=== PATIENT | female | born 1950 | race Caucasian/White ===

== ENCOUNTER 2016-12-02 08:04 | Inpatient (IN) | payer OTHER ==
[~2016-12-02] VITALS: Ht 165.1 cm; Wt 60.1 kg
[~2016-12-02 08:04] MED LIST: ADVIN25/60 INH; CALC-20 PO; CLB/200 PO; FSMD/70 PO; LEVO125T57 PO; MULTTAB58 PO; PRLSR20 PO; TRIA37.5 PO; XRL10 PO
[2016-12-02] MEDS ORDERED: KETOROLAC TROMETHAMINE 30 MG/ML VIAL IV STA (08:16)
[2016-12-02] MEDS ORDERED: ONDANSETRON INJ 2 MG/ML 2 ML VIAL IV STA (08:16)
[2016-12-02] MEDS ORDERED: SODIUM CHLORIDE 0.9% 1000ML 500 ML IV STA (08:16)
--- NOTE | 2016-12-02 08:26 | EMERGENCY ROOM VISIT NOTE ---
History Report prepared by Naseem: Riri Saba Under the Supervision of: Dr. Michael Bonds M.D. First contact with patient: 08:11 Chief Complaint: ABDOMINAL PAIN Stated Complaint: SEVERE LOWER ABD PAIN/PRESSURE History of Present Illness The patient is a 66 year old female who presents to the Emergency Room with complaints of persistent lower abdominal pain that began yesterday afternoon. She currently rates her discomfort as a 9/10 in severity and describes her pain as a pressure. The patient states that she has a history of diverticulitis, noting that her pain today feels worse than her bouts of diverticulitis. She reports a history of an appendectomy and hysterectomy. The patient states that she did not take her diuretic today. She denies any pain radiating into her back. The patient denies any fever. She associates nausea with her symptoms today. The patient denies any history of a UTI. She states that her pain started when she had a hard bowel movement, but states that she is now experiencing diarrhea. Source of History: patient Onset: yesterday afternoon Position: abdomen (lower ) Symptom Intensity: 9/10 Quality: pressure Associated Symptoms: + nausea, + diarrhea, No fevers Review of Systems See HPI for pertinent positives & negatives. A total of 10 systems reviewed and were otherwise negative. Past Medical & Surgical Medical Problems: (1) Asthma (2) Breast cancer (3) Diverticulitis (4) Hypertension (5) Thyroid disease Surgical Problems: (1) H/O bilateral mastectomy (2) H/O: hysterectomy (3) History of appendectomy (4) History of tonsillectomy (5) S/p bilateral shoulder joint replacement (6) S/P cholecystectomy (7) Status post right hip replacement Family History No pertinent family history stated. Social History Smoking Status: Never Smoker Smokeless Tobacco Use: No Alcohol Use: none Marital Status: Housing Status: lives with significant other Current/Historical Medications Scheduled Amlodipine (Norvasc), 2.5 MG PO DAILY Calcium Carbonate-Vitamin D (Calcium 600 + D), 1 TAB PO BID Escitalopram (Lexapro), 10 MG PO DAILY Levothyroxine Sodium (Synthroid), 112 MCG PO DAILY Multiple Vitamin (Multivitamin), 1 TAB PO DAILY Pantoprazole (Protonix), 40 MG PO DAILY Triamterene/Hctz (Dyazide 37.5MG/25MG), 1 TAB PO DAILY Scheduled PRN Ltjmwgh-Wdfkipjstqget-Pcnhcswv (Excedrin Extra Strength), 1 TAB PO UD PRN for Pain Budesonide/Formoterol Fumarate (Symbicort 80/4.5 Inhaler), 2 PUFFS INH BID PRN for SOB/Wheezing Allergies Coded Allergies: No Known Allergies (Verified , 12/02/16) Physical Exam Vital Signs Date Time Temp Pulse Resp B/P (MAP) Pulse Ox O2 Delivery O2 Flow Rate FiO2 12/02/16 10:52 68 136/78 94 Room Air 12/02/16 09:04 75 179/92 93 Room Air 12/02/16 08:08 37.6 97 18 187/101 94 Room Air Physical Exam GENERAL: Patient is in no acute distress. HEENT: No acute trauma, normocephalic atraumatic, mucous membranes moist, no nasal congestion, no scleral icterus. NECK: No stridor, no adenopathy, no meningismus, trachea is midline. LUNGS: Clear to auscultation bilaterally, no wheeze, no rhonchi, breath sounds equal. HEART: Without murmurs gallops or rubs, regular rate and rhythm. ABDOMEN: Moderately tender to lower abdomen bilaterally. Soft, bowel sounds positive, no hernias, no peritonitis. EXTREMITIES: No cyanosis or edema, full range of motion of all the joints without pain or difficulty, no signs for acute trauma. NEUROLOGIC: Oriented x 3, no acute motor or sensory deficits, no focal weakness. SKIN: No rash, no jaundice, no diaphoresis. Medical Decision & Procedures ER Provider Diagnostic Interpretation: CT results as stated below per my review and radiologist interpretation: ABD/PELVIS IV AND ORAL CONT HISTORY: 66 years-old Female ABDOMINAL PAIN/GI--?DIVERTICULITIS--GIVE PO AND IV CONTRAST acute diffuse lower abdominal pain COMPARISON: None available TECHNIQUE: Multiple axial CT images of the abdomen and pelvis were obtained following the administration of both oral and IV contrast. 95 mL Optiray 320 IV contrast was administered. A dose lowering technique was used consistent with the principals of ALARA. FINDINGS: The imaged lung bases are generally clear. The imaged inferior cardiac chambers are unremarkable. Coronary arterial calcifications are noted. Prior cholecystectomy. Mild intrahepatic and extrahepatic biliary ductal dilation is likely secondary to postcholecystectomy state with common bile duct measuring up to 12 mm transversely. There is a nonspecific 1.5 x 1.9 cm low attenuating lesion of the subserosal anterior spleen. There is moderate pancreatic atrophy. Adrenal glands are within normal limits. Bilateral kidneys and ureters are within normal limits. Limited evaluation of the pelvic structures secondary to bilateral hip arthroplasty pelvic hardware. Urinary bladder appears demonstrate mildly thickened wall anteriorly which is nonspecific. The uterus is not well seen and may be surgically absent. There is mild atherosclerotic plaquing of the abdominal aorta. No bulky retroperitoneal adenopathy. Moderate-sized duodenal diverticulum is noted. No bowel obstruction. There is circumferential wall thickening involving several loops of sigmoid colon. Innumerable sigmoid colonic diverticula are noted with mild degree of inflammatory changes seen in the region of the mid sigmoid colon. Scattered foci of extraperitoneal air noted within the pelvis compatible with perforation. There is a mixed attenuating collection containing central foci of air and debris in the region of the mid sigmoid colon on image 308, 2.2 x 3.4 x 2.3 cm which does not contain oral contrast, suspicious for intramural abscess. Soft tissues are within normal limits. The bones are mildly demineralized. Grade 1 anterolisthesis of L4 on L5 appears be secondary to severe facet arthropathy. Multilevel advanced discogenic degenerative changes are noted. Without IMPRESSION: 1. Findings compatible with acute complicated sigmoid diverticulitis. Pneumoperitoneum of the lower pelvis is compatible with associated perforation. Additionally, there is a probable intramural abscess involving the mid sigmoid colon measuring up to 3.4 cm. 2. No bowel obstruction. 3. Additional incidental findings as above. The above report was generated using voice recognition software. It may contain grammatical, syntax or spelling errors. Electronically signed by: Rashad Jaramillo M.D. 12/02/2016 10:52 AM Dictated Date/Time: 12/02/2016 10:41 AM Laboratory Results 12/02/16 08:40 Red Blood Count 4.89, Mean Corpuscular Volume 84.9, Mean Corpuscular Hemoglobin 28.8, Mean Corpuscular Hemoglobin Concent 34.0, Mean Platelet Volume 9.1, Neutrophils (%) (Auto) 87.6, Lymphocytes (%) (Auto) 6.0, Monocytes (%) (Auto) 5.8, Eosinophils (%) (Auto) 0.2, Basophils (%) (Auto) 0.2, Neutrophils # (Auto) 11.16, Lymphocytes # (Auto) 0.76, Monocytes # (Auto) 0.74, Eosinophils # (Auto) 0.02, Basophils # (Auto) 0.02 12/02/16 08:40 Test 12/02/16 08:18 12/02/16 08:40 Urine Color YELLOW Urine Appearance CLOUDY (CLEAR) Urine pH 7.0 (4.5-7.5) Urine Specific [place] 1.019 (1.000-1.030) Urine Protein NEG (NEG) Urine Glucose (UA) NEG (NEG) Urine Ketones NEG (NEG) Urine Occult Blood TRACE (NEG) Urine Nitrite POS (NEG) Urine Bilirubin NEG (NEG) Urine Urobilinogen NEG (NEG) Urine Leukocyte Esterase MODERATE (NEG) Urine WBC (Auto) >30 /hpf (0-5) Urine RBC (Auto) 0-4 /hpf (0-4) Urine Hyaline Casts (Auto) 1-5 /lpf (0-5) Urine Epithelial Cells (Auto) 0-5 /lpf (0-5) Urine Bacteria (Auto) 4+ (NEG) White Blood Count 12.73 K/uL (4.8-10.8) Red Blood Count 4.89 M/uL (4.2-5.4) Hemoglobin 14.1 g/dL (12.0-16.0) Hematocrit 41.5 % (37-47) Mean Corpuscular Volume 84.9 fL (80-100) Mean Corpuscular Hemoglobin 28.8 pg (25-34) Mean Corpuscular Hemoglobin Concent 34.0 g/dl (32-36) Platelet Count 239 K/uL (130-400) Mean Platelet Volume 9.1 fL (7.4-10.4) Neutrophils (%) (Auto) 87.6 % Lymphocytes (%) (Auto) 6.0 % Monocytes (%) (Auto) 5.8 % Eosinophils (%) (Auto) 0.2 % Basophils (%) (Auto) 0.2 % Neutrophils # (Auto) 11.16 K/uL (1.4-6.5) Lymphocytes # (Auto) 0.76 K/uL (1.2-3.4) Monocytes # (Auto) 0.74 K/uL (0.11-0.59) Eosinophils # (Auto) 0.02 K/uL (0-0.5) Basophils # (Auto) 0.02 K/uL (0-0.2) RDW Standard Deviation 41.5 fL (36.4-46.3) RDW Coefficient of Variation 13.4 % (11.5-14.5) Immature Granulocyte % (Auto) 0.2 % Immature Granulocyte # (Auto) 0.03 K/uL (0.00-0.02) Anion Gap 7.0 mmol/L (3-11) Est Creatinine Clear Calc Drug Dose 75.3 ml/min Estimated GFR () 106.9 Estimated GFR (Non- 92.2 BUN/Creatinine Ratio 19.4 (10-20) Calcium Level 10.3 mg/dl (8.5-10.1) Total Bilirubin 0.7 mg/dl (0.2-1) Aspartate Amino Transf (AST/SGOT) 15 U/L (15-37) Alanine Aminotransferase (ALT/SGPT) 19 U/L (12-78) Alkaline Phosphatase 87 U/L (45-117) Total Protein 7.7 gm/dl (6.4-8.2) Albumin 4.2 gm/dl (3.4-5.0) Globulin 3.5 gm/dl (2.5-4.0) Albumin/Globulin Ratio 1.2 (0.9-2) Lipase 130 U/L (73-393) Laboratory results reviewed by me. Medications Administered Medications (Trade) Dose Ordered Sig/Adrinaa Route Start Time Stop Time Status Last Admin Dose Admin Sodium Chloride 500 ml @ 999 mls/hr Q31M STAT IV 12/02/16 08:16 12/02/16 08:46 DC 12/02/16 08:44 999 MLS/HR Ondansetron HCl (Zofran Inj) 4 mg NOW STAT IV 12/02/16 08:16 12/02/16 08:18 DC 12/02/16 08:43 4 MG Ketorolac Tromethamine (Toradol Inj) 30 mg NOW STAT IV 12/02/16 08:16 12/02/16 08:18 DC 12/02/16 08:43 30 MG Ceftriaxone Sodium (Rocephin Inj) 1 gm NOW STAT IV 12/02/16 08:55 12/02/16 08:56 DC 12/02/16 09:00 1 GM Piperacillin Sod/ Tazobactam Sod (Zosyn Iv) 4.5 gm NOW STAT IV 12/02/16 11:07 12/02/16 11:08 DC 12/02/16 11:43 4.5 GM ED Course 0812: The patient was evaluated in room A3. A complete history and physical exam was performed. 0816: Ordered Toradol Inj 30 mg IV, Zofran Inj 4 mg IV, Sodium Chloride 500 ml @ 999 mls/hr IV. 0855: Ordered Rocephin Inj 1 gm IV. 0937: I reevaluated the patient and she is resting comfortably, drinking her contrast. 1107: I discussed the patients case with Dr. Alex, General Surgery. He states that he will come evaluate the patient. Ordered Zosyn IV 4.5 gm IV. 1111: I reevaluated the patient and she is resting. I discussed the exam findings with her and I discussed the treatment plan. Dr. Alex, General Surgery is going to come evaluate the patient. Medical Decision The patient is a 66 year old female who presents to the ED with complaints of lower abdominal pain. Differential diagnoses considered include Diverticulitis , UTI, kidney infection, hernia, bowel rupture, musculoskeletal pain, pancreatitis, colitis, constipation. There is a mild leukocytosis, this would be consistent with infection. No concerning anemia. No significant electrolyte abnormality, kidney failure or hepatitis. No pancreatitis Urinalysis does suggest infection, urine culture is pending. Abdominal and pelvis CT shows diverticulitis with a small abscess and what appears to be a diverticular perforation. The patient received IV saline, IV Zofran and IV Toradol. She was given IV ceftriaxone and IV Zosyn. I spoke to the patient about her findings, I talked with the case resolution specialist. I spoke with the on-call surgeon. The patient will be brought into the hospital, she may require an operation. Consults Time Called: 1106 Consulting Physician: Dr. Alex, General Surgery Returned Call: 1107 I discussed the patients case with Dr. Alex, General Surgery. He states that he will come evaluate the patient. Impression Primary Impression: Diverticulitis Additional Impressions: Bowel perforation Intestinal diverticular abscess UTI (urinary tract infection) Scribe Attestation The scribe's documentation has been prepared under my direction and personally reviewed by me in its entirety. I confirm that the note above accurately reflects all work, treatment, procedures, and medical decision making performed by me. Departure Information Dispostion Being Evaluated By Surgeon Referrals Zander Taylor M.D. (PCP) Problem Qualifiers
[2016-12-02] MEDS ORDERED: OPTIRAY 320 IV PRN (08:30)
[2016-12-02 08:36] LABS: URINE APPEARANCE CLOUDY (CLEAR); URINE BILIRUBIN NEG (NEG); URINE COLOR YELLOW; URINE EPITHELIAL CELL AUTO 0-5 /lpf (0-5); URINE NITRITE POS (NEG); URINE SPECIFIC GRAVITY 1.019 (1.000-1.030); UROBILINOGEN NEG (NEG); ZZUR CULT IF INDIC CLEAN CATCH YES
[2016-12-02] MEDS ORDERED: LEVO112T2 PO (08:44)
[2016-12-02] MEDS ORDERED: ESCI10TA17 PO (08:44)
[2016-12-02] MEDS ORDERED: ASPI-391 PO (08:44)
[2016-12-02] MEDS ORDERED: AMLO2.5T PO (08:44)
[2016-12-02] MEDS ORDERED: PANT40TA PO (08:44)
[2016-12-02] MEDS ORDERED: SYMIN/8045 INH (08:44)
[2016-12-02 08:48] LABS: MANUAL MICROSCOPIC REQUIRED? NO; REVIEW REQ? NO
[2016-12-02 08:49] LABS: BASO % 0.2 %; BASO ABS # 0.02 K/uL (0-0.2); COMPLETE YES; EOS % 0.2 %; HEMATOCRIT 41.5 % (37-47); IG% 0.2 %; LYMPH ABS # 0.76 K/uL (1.2-3.4); MEAN CELL VOLUME 84.9 fL (80-100); MEAN CORPUSCULAR HEMOGLOBIN 28.8 pg (25-34); MEAN PLATELET VOLUME 9.1 fL (7.4-10.4); MONO % 5.8 %; NEUT % 87.6 %; PLATELET COUNT 239 K/uL (130-400); RED BLOOD COUNT 4.89 M/uL (4.2-5.4); WHITE BLOOD COUNT 12.73 K/uL (4.8-10.8)
[2016-12-02] MEDS ORDERED: CEFTRIAXONE SOD INJ 1 GM ADDVIAL IV STA (08:55)
[2016-12-02 09:06] LABS: BUN/CREATININE RATIO 19.4 (10-20); CALCIUM 10.3 mg/dl (8.5-10.1); CREATININE 0.67 mg/dl (0.60-1.20); POTASSIUM 3.1 mmol/L (3.5-5.1)
[2016-12-02 09:09] LABS: ALB/GLOB RATIO 1.2 (0.9-2)
--- NOTE | 2016-12-02 10:53 | DIAGNOSTIC IMAGING REPORT ---
ABD/PELVIS IV AND ORAL CONT HISTORY: 66 years-old Female ABDOMINAL PAIN/GI--?DIVERTICULITIS--GIVE PO AND IV CONTRAST acute diffuse lower abdominal pain COMPARISON: None available TECHNIQUE: Multiple axial CT images of the abdomen and pelvis were obtained following the administration of both oral and IV contrast. 95 mL Optiray 320 IV contrast was administered. A dose lowering technique was used consistent with the principals of SANTANA. FINDINGS: The imaged lung bases are generally clear. The imaged inferior cardiac chambers are unremarkable. Coronary arterial calcifications are noted. Prior cholecystectomy. Mild intrahepatic and extrahepatic biliary ductal dilation is likely secondary to postcholecystectomy state with common bile duct measuring up to 12 mm transversely. There is a nonspecific 1.5 x 1.9 cm low attenuating lesion of the subserosal anterior spleen. There is moderate pancreatic atrophy. Adrenal glands are within normal limits. Bilateral kidneys and ureters are within normal limits. Limited evaluation of the pelvic structures secondary to bilateral hip arthroplasty pelvic hardware. Urinary bladder appears demonstrate mildly thickened wall anteriorly which is nonspecific. The uterus is not well seen and may be surgically absent. There is mild atherosclerotic plaquing of the abdominal aorta. No bulky retroperitoneal adenopathy. Moderate-sized duodenal diverticulum is noted. No bowel obstruction. There is circumferential wall thickening involving several loops of sigmoid colon. Innumerable sigmoid colonic diverticula are noted with mild degree of inflammatory changes seen in the region of the mid sigmoid colon. Scattered foci of extraperitoneal air noted within the pelvis compatible with perforation. There is a mixed attenuating collection containing central foci of air and debris in the region of the mid sigmoid colon on image 308, 2.2 x 3.4 x 2.3 cm which does not contain oral contrast, suspicious for intramural abscess. Soft tissues are within normal limits. The bones are mildly demineralized. Grade 1 anterolisthesis of L4 on L5 appears be secondary to severe facet arthropathy. Multilevel advanced discogenic degenerative changes are noted. Without IMPRESSION: 1. Findings compatible with acute complicated sigmoid diverticulitis. Pneumoperitoneum of the lower pelvis is compatible with associated perforation. Additionally, there is a probable intramural abscess involving the mid sigmoid colon measuring up to 3.4 cm. 2. No bowel obstruction. 3. Additional incidental findings as above. The above report was generated using voice recognition software. It may contain grammatical, syntax or spelling errors. Electronically signed by: Rashad Jaramillo M.D. 12/02/2016 10:52 AM Dictated Date/Time: 12/02/2016 10:41 AM
[2016-12-02] MEDS ORDERED: PIPERACILLIN/TAZOBACTAM 4.5 GM/100ML D5W IV STA (11:07)
--- NOTE | 2016-12-02 11:46 | History and Physical ---
History & Physical Date & Time of Service: Dec 02, 2016 at 11:41 Chief Complaint: Severe Lower Abd Pain/Pressure Primary Care Physician: Zander Taylor M.D. History of Present Illness pt began with loose BM's yesterday...took a bentyl...starting having lower pain and urinary symptoms as well. this morning got worse. Has had at least one episode of diverticulitis in past. no fever. Past Medical/Surgical History Medical Problems: (1) Asthma Status: Chronic (2) Breast cancer Status: Resolved (3) Hypertension Status: Chronic (4) Thyroid disease Status: Chronic Surgical Problems: (1) H/O bilateral mastectomy Status: Resolved (2) H/O: hysterectomy Status: Resolved (3) History of appendectomy Status: Resolved (4) History of tonsillectomy Status: Resolved (5) S/p bilateral shoulder joint replacement Status: Resolved (6) S/P cholecystectomy Status: Resolved (7) Status post right hip replacement Status: Resolved Social History Smoking Status: Never Smoker Smokeless Tobacco Use: No Marital Status: Immunizations History of Influenza Vaccine: N/A History of Tetanus Vaccine?: Yes History of Pneumococcal: Yes History of Hepatitis B Vaccine: No Multi-Drug Resistant Organisms History of MDRO: No Allergies Coded Allergies: No Known Allergies (Verified , 12/02/16) Home Medications Scheduled Amlodipine (Norvasc), 2.5 MG PO DAILY Calcium Carbonate-Vitamin D (Calcium 600 + D), 1 TAB PO BID Escitalopram (Lexapro), 10 MG PO DAILY Levothyroxine Sodium (Synthroid), 112 MCG PO DAILY Multiple Vitamin (Multivitamin), 1 TAB PO DAILY Pantoprazole (Protonix), 40 MG PO DAILY Triamterene/Hctz (Dyazide 37.5MG/25MG), 1 TAB PO DAILY Scheduled PRN Nxzlwxc-Julkkvirxgeiu-Sqyplgqb (Excedrin Extra Strength), 1 TAB PO UD PRN for Pain Budesonide/Formoterol Fumarate (Symbicort 80/4.5 Inhaler), 2 PUFFS INH BID PRN for SOB/Wheezing Review of Systems Abdomen: + pain, + diarrhea Genitourinary - Female: + dysuria, + urinary frequency Physical Exam Vital Signs Date Time Temp Pulse Resp B/P (MAP) Pulse Ox O2 Delivery O2 Flow Rate FiO2 12/02/16 10:52 68 136/78 94 Room Air 12/02/16 09:04 75 179/92 93 Room Air 12/02/16 08:08 37.6 97 18 187/101 94 Room Air General Appearance: no apparent distress Head: normocephalic, atraumatic Eyes: normal inspection, EOMI ENT: hearing grossly normal Neck: supple, no JVD Respiratory/Chest: no respiratory distress, no accessory muscle use Cardiovascular: no edema, no JVD Abdomen/GI: soft, + pertinent finding (mild suprapubic tendernss. no peritoneal signs) Neurologic/Psych: alert, oriented x 3 Skin: normal color, warm/dry, no rash Diagnostics Laboratory Results Results Past 24 Hours Test 12/02/16 08:18 12/02/16 08:40 Range/Units Urine Color YELLOW Urine Appearance CLOUDY CLEAR Urine pH 7.0 4.5-7.5 Urine Specific [place] 1.019 1.000-1.030 Urine Protein NEG NEG Urine Glucose (UA) NEG NEG Urine Ketones NEG NEG Urine Occult Blood TRACE NEG Urine Nitrite POS NEG Urine Bilirubin NEG NEG Urine Urobilinogen NEG NEG Urine Leukocyte Esterase MODERATE NEG Urine WBC (Auto) >30 0-5 /hpf Urine RBC (Auto) 0-4 0-4 /hpf Urine Hyaline Casts (Auto) 1-5 0-5 /lpf Urine Epithelial Cells (Auto) 0-5 0-5 /lpf Urine Bacteria (Auto) 4+ NEG White Blood Count 12.73 4.8-10.8 K/uL Red Blood Count 4.89 4.2-5.4 M/uL Hemoglobin 14.1 12.0-16.0 g/dL Hematocrit 41.5 37-47 % Mean Corpuscular Volume 84.9 80-100 fL Mean Corpuscular Hemoglobin 28.8 25-34 pg Mean Corpuscular Hemoglobin Concent 34.0 32-36 g/dl Platelet Count 239 130-400 K/uL Mean Platelet Volume 9.1 7.4-10.4 fL Neutrophils (%) (Auto) 87.6 % Lymphocytes (%) (Auto) 6.0 % Monocytes (%) (Auto) 5.8 % Eosinophils (%) (Auto) 0.2 % Basophils (%) (Auto) 0.2 % Neutrophils # (Auto) 11.16 1.4-6.5 K/uL Lymphocytes # (Auto) 0.76 1.2-3.4 K/uL Monocytes # (Auto) 0.74 0.11-0.59 K/uL Eosinophils # (Auto) 0.02 0-0.5 K/uL Basophils # (Auto) 0.02 0-0.2 K/uL RDW Standard Deviation 41.5 36.4-46.3 fL RDW Coefficient of Variation 13.4 11.5-14.5 % Immature Granulocyte % (Auto) 0.2 % Immature Granulocyte # (Auto) 0.03 0.00-0.02 K/uL Sodium Level 138 136-145 mmol/L Potassium Level 3.1 3.5-5.1 mmol/L Chloride Level 103 98-107 mmol/L Carbon Dioxide Level 28 21-32 mmol/L Anion Gap 7.0 3-11 mmol/L Blood Urea Nitrogen 13 7-18 mg/dl Creatinine 0.67 0.60-1.20 mg/dl Est Creatinine Clear Calc Drug Dose 75.3 ml/min Estimated GFR () 106.9 Estimated GFR (Non- 92.2 BUN/Creatinine Ratio 19.4 10-20 Random Glucose 108 70-99 mg/dl Calcium Level 10.3 8.5-10.1 mg/dl Total Bilirubin 0.7 0.2-1 mg/dl Aspartate Amino Transf (AST/SGOT) 15 15-37 U/L Alanine Aminotransferase (ALT/SGPT) 19 12-78 U/L Alkaline Phosphatase 87 45-117 U/L Total Protein 7.7 6.4-8.2 gm/dl Albumin 4.2 3.4-5.0 gm/dl Globulin 3.5 2.5-4.0 gm/dl Albumin/Globulin Ratio 1.2 0.9-2 Lipase 130 73-393 U/L Microbiology Results 12/02/16 Urine Culture, Received Pending Diagnostic Radiology ct showing diverticulitis foci of free air in pelvis suspected intramural abcess Impression Assessment and Plan acute diverticulitis with perforation clinically she looks much better than her ct scan. abdomen soft really with minimal tenderness discussed her dx will admit, NPO, IV antibiotics/IVF/symptom control still may need ex-lap if she worsens clinically will consult medicine for her other medical issues will highly recommend elective resection in future if we can get her through this non-operatively.
[2016-12-02 12:55] VITALS: BP 151/78; PULSE 86; TEMP 37.5; O2SAT 93; Ht 165.1 cm; Wt 60.1 kg
[2016-12-02] MEDS: METRONIDAZOLE / NSS 500 MG in PREMIXED NSS 100 ML IV SCH ×2 (14:02→22:31)
[2016-12-02] MEDS: D5NSS + 20MEQ KCL 1,000 ML IV SCH ×2 (14:02→22:31)
[2016-12-02] MEDS: HYDROmorphone INJ 1 MG/ML SYR IV PRN (14:07)
[2016-12-02 15:00] VITALS: BP 132/77; PULSE 88; TEMP 36.6; O2SAT 94
[2016-12-02] MEDS: CIPROFLOXACIN / D5W 400 MG in PREMIXED IN D5W 200 ML IV SCH (16:00)
[2016-12-02] MEDS: ACETAMINOPHEN IV 100 ML IV PRN (23:43)
[2016-12-02 23:45] VITALS: BP 134/73; PULSE 92; TEMP 37.3; O2SAT 91
[2016-12-03] MEDS: CIPROFLOXACIN / D5W 400 MG in PREMIXED IN D5W 200 ML IV SCH ×2 (03:54→18:02)
[2016-12-03] MEDS: METRONIDAZOLE / NSS 500 MG in PREMIXED NSS 100 ML IV SCH ×3 (05:48→22:02)
[2016-12-03] MEDS: D5NSS + 20MEQ KCL 1,000 ML IV SCH ×3 (05:48→20:52)
[2016-12-03 07:20] VITALS: BP 131/79; PULSE 76; TEMP 37.6; O2SAT 91
[2016-12-03 07:53] LABS: BASO % 0.1 %; BASO ABS # 0.01 K/uL (0-0.2); COMPLETE YES; EOS % 0.3 %; HEMATOCRIT 34.4 % (37-47); IG% 0.3 %; LYMPH % 4.6 %; LYMPH ABS # 0.54 K/uL (1.2-3.4); MEAN CELL VOLUME 85.4 fL (80-100); MEAN CORPUSCULAR HEMOGLOBIN 28.3 pg (25-34); MEAN CORPUSCULAR HGB CONC 33.1 g/dl (32-36); MEAN PLATELET VOLUME 9.4 fL (7.4-10.4); MONO % 4.5 %; NEUT % 90.2 %; PLATELET COUNT 185 K/uL (130-400); RED BLOOD COUNT 4.03 M/uL (4.2-5.4); WHITE BLOOD COUNT 11.64 K/uL (4.8-10.8)
[2016-12-03] MEDS: HYDROmorphone INJ 1 MG/ML SYR IV PRN ×2 (08:09→16:23)
[2016-12-03 09:47] LABS: BUN/CREATININE RATIO 16.6 (10-20); CALCIUM 8.7 mg/dl (8.5-10.1); CREATININE 0.53 mg/dl (0.60-1.20); POTASSIUM 3.2 mmol/L (3.5-5.1)
[2016-12-03] MEDS ORDERED: BUDESONIDE/FORMOTEROL FUMARATE 80/4.5 60 PUFFS/INHALER INH PRN (10:00)
--- NOTE | 2016-12-03 10:13 | Medical Consult ---
Consultation Date of Consultation: Dec 03, 2016. Attending Physician: Nadeem Alex D.O. Reason for Consultation: Medical management History of Present Illness This is a 66 y/o female with a history of HTN, HLD, asthma, generalized anxiety disorder, hypothyroidism, osteoporosis, h/o breast cancer, and GERD who presents with acute diverticulitis with perforation and abscess. The patient was admitted by Dr. Alex of general surgery on 12/02 and medicine is consulted for medical management due to history of HTN. The patient reports feeling better this morning. She complains of a 5/10 aching pain in the center of her abdomen. She states she has intermittent bouts of intense, sharp pain on top of the constant aching. She complains of nausea this morning but denies vomiting. She is currently NPO. The patient does admit to dysuria. The patient denies fevers, chills, sweats, chest pain, palpitations, claudication, cough, wheezing, shortness of breath, vomiting, hematuria, urinary retention, paralysis, weakness, numbness and tingling. Past Medical/Surgical History Medical Problems: (1) Bowel perforation Status: Acute (2) Intestinal diverticular abscess Status: Acute (3) UTI (urinary tract infection) Status: Acute HTN HLD Asthma NAMITA Hypothyroidism Osteoporosis H/o breast cancer s/p chemo, radiation and b/l mastectoomy 2009 GERD Family History Bladder cancer Breast cancer Diabetes mellitus Hyperlipidemia Hypertension Kidney disease Kidney stones Lung disease Myocardial infarction Social History Smoking Status: Former Smoker (quit around 2002) Smokeless Tobacco Use: No Alcohol Use: none Drug Use: none Marital Status: Housing Status: lives with significant other Occupation Status: employed Allergies Coded Allergies: No Known Allergies (Verified , 12/02/16) Current Inpatient Medications Current Inpatient Medications Medications (Trade) Dose Ordered Sig/Adriana Route Start Time Stop Time Status Last Admin Dose Admin Ioversol (Optiray 320) 100 ml UD PRN IV 12/02/16 08:30 12/06/16 08:29 Ciprofloxacin/ Dextrose 400 mg/ Prmx 200 ml @ 100 mls/hr Q12H IV 12/02/16 16:00 12/12/16 15:59 12/03/16 03:54 100 MLS/HR Metronidazole 500 mg/Prmx 100 ml @ 100 mls/hr Q8H IV 12/02/16 14:00 12/12/16 13:59 12/03/16 05:48 100 MLS/HR Acetaminophen 100 ml @ 400 mls/hr Q8H PRN IV 12/02/16 12:00 01/01/17 11:59 12/02/16 23:43 400 MLS/HR Hydromorphone HCl (Dilaudid Inj) 1 mg Q1HWA PRN IV 12/02/16 12:00 12/16/16 11:59 12/03/16 08:09 1 MG Ondansetron HCl (Zofran Inj) 4 mg Q4H PRN IV 12/02/16 12:00 01/01/17 11:59 Pantoprazole Sodium 40 mg/ Syringe 10 ml @ 5 mls/min DAILY@11 IV 12/03/16 11:00 01/02/17 10:59 Potassium Chloride/Dextrose/ Sod Cl 1,000 ml @ 125 mls/hr Q8H IV 12/02/16 13:00 01/01/17 12:59 12/03/16 05:48 125 MLS/HR Review of Systems See HPI for pertinent positives and negatives. All other systems reviewed and negative. Physical Exam Date Time Temp Pulse Resp B/P (MAP) Pulse Ox O2 Delivery O2 Flow Rate FiO2 12/03/16 07:20 37.6 76 18 131/79 (96) 91 Room Air 12/02/16 23:45 Room Air 12/02/16 23:45 37.3 92 14 134/73 (93) 91 Room Air 12/02/16 16:25 Room Air 12/02/16 15:00 36.6 88 18 132/77 (95) 94 Room Air 12/02/16 12:55 37.5 86 18 151/78 93 Room Air 12/02/16 10:52 68 136/78 94 Room Air General appearance: Well-developed, well-nourished, no apparent distress Head: Normocephalic, atraumatic Eyes: Normal inspection, PERRL, EOMI ENT: Normal ENT inspection, hearing grossly normal, pharynx normal Neck: Supple, no JVD, trachea midline Respiratory/Chest: +Diminished breath sounds throughout. Lungs clear to auscultation, normal breath sounds, no respiratory distress Cardiovascular: +Systolic murmur. Regular rate & rhythm, no gallop Abdomen/GI: +Mild tenderness around umbilical area and LLQ. Hypoactive bowel sounds. Soft Extremities/Musculoskeletal: Normal inspection, no calf tenderness, no pedal edema Neurological/Psych: Alert, normal mood/affect, oriented x 3 Skin: Normal color, warm/dry, no rash Laboratory Results Last 24 Hours Test 12/03/16 07:14 White Blood Count 11.64 K/uL Red Blood Count 4.03 M/uL Hemoglobin 11.4 g/dL Hematocrit 34.4 % Mean Corpuscular Volume 85.4 fL Mean Corpuscular Hemoglobin 28.3 pg Mean Corpuscular Hemoglobin Concent 33.1 g/dl Platelet Count 185 K/uL Mean Platelet Volume 9.4 fL Neutrophils (%) (Auto) 90.2 % Lymphocytes (%) (Auto) 4.6 % Monocytes (%) (Auto) 4.5 % Eosinophils (%) (Auto) 0.3 % Basophils (%) (Auto) 0.1 % Neutrophils # (Auto) 10.51 K/uL Lymphocytes # (Auto) 0.54 K/uL Monocytes # (Auto) 0.52 K/uL Eosinophils # (Auto) 0.03 K/uL Basophils # (Auto) 0.01 K/uL RDW Standard Deviation 42.8 fL RDW Coefficient of Variation 13.8 % Immature Granulocyte % (Auto) 0.3 % Immature Granulocyte # (Auto) 0.03 K/uL Sodium Level 141 mmol/L Potassium Level 3.2 mmol/L Chloride Level 108 mmol/L Carbon Dioxide Level 27 mmol/L Anion Gap 6.0 mmol/L Blood Urea Nitrogen 9 mg/dl Creatinine 0.53 mg/dl Est Creatinine Clear Calc Drug Dose 95.2 ml/min Estimated GFR () 115.5 Estimated GFR (Non- 99.6 BUN/Creatinine Ratio 16.6 Random Glucose 103 mg/dl Calcium Level 8.7 mg/dl Assessment & Plan 66 y/o female with a history of HTN, HLD, asthma, generalized anxiety disorder, hypothyroidism, osteoporosis, h/o breast cancer, and GERD who presents with acute diverticulitis with perforation and abscess. Medicine consulted for medical management of HTN. Acute diverticulitis w/perforation and abscess--improving -Pain management, IV abx and surgical management per primary team -Pt NPO -IVF D5NSS + 20 mEq KCl at 125 cc/hr -Leukocytosis improving. WBC down to 11.64 on 12/03 from 12.73. Afebrile, VSS -Cipro and Flagyl IV. Day #1 UTI POA -Urine culture positive for GNR -Abx as above Hypokalemia -Potassium 3.1 on admission -IVF w/KCl as above -Potassium 3.2 on 12/02 -KCl 10 mEq IV x 4 doses, continue to monitor HTN--stable -Continue Norvasc 2.5 mg PO qd and Dyazide 37.5/25 mg PO qd Asthma--stable, no acute exacerbation -Continue Symbicort 2 puffs inh BID. Pt takes this only on a prn basis NAMITA--stable -Continue Lexapro 10 mg PO qd Hypothyroidism -Continue Synthroid 112 mcg PO qd Osteoporosis -Calcium + vitamin D supplement H/o breast cancer--pt states this was diagnosed 24 years ago. S/p radiation and chemo, was on tamoxifen for 5 years. B/l mastectomy in 2009. No acute issues GERD -Continue Protonix 40 mg IV qd Thank you for this consultation. We will continue to follow. Attending Consult Note & Attestation: Pt seen/examined, chart reviewed, and care plan d/w AFSHAN Queen. I agree w/ the muñoz components of her documentation. 66yo female with acute diverticulitis with perforation and abscess of the sigmoid region. During my assessment she was having emesis, headache, and abdominal pain. She reports frequent headaches at home and takes excedrin migraine nearly daily for such. She has had multiple episodes of diverticulitis in the past. PMH, PSH, allergies, meds, sochx, famhx, ros - reviewed afebrile, VSS gen - looks uncomfortable mouth - MM dry heart - RRR, s1, s2, 2/6 systolic murmur LLSB lungs - CTA b/l abd - soft, ND, tender LLQ, BS+ ext - no edema A/P: 1. acute complicated diverticulitis of the sigmoid with abscess and perforation - IV abx, NPO, IVF, management per surgery. 2. asthma - w/o exacerbation. 3. hypokalemia - replace. Repeat BMP am. 4. chronic daily headache - we talked about the use of abortive therapy on a daily basis typically leads to rebound and reinforces the headache cycle. She is a good candidate for daily prophylaxis in the future. I recommended she speak with her PCP about this issue. 5. HTN - continue home meds. 6. hypothyroidism - cont synthroid. Olaf Hughes MD
[2016-12-03] MEDS: PANTOprazole INJ 40 MG in SYRINGE 0 ML IV SCH (10:16)
[2016-12-03] MEDS: ONDANSETRON INJ 2 MG/ML 2 ML VIAL IV PRN ×2 (10:16→17:26)
--- NOTE | 2016-12-03 10:35 | Surgery Progress Note ---
Surgery Progress Note Date of Service Dec 03, 2016. Subjective she had a bout of bad pain this AM but now feels better. overall her thinks she looks better. + BM overnight. afebrile. WBC down to 11,000 ( 12, 000). she thinks there has been no major change since yesterday. she only took pain medicine twice since admission. Objective Vital Signs: Date Time Temp Pulse Resp B/P (MAP) Pulse Ox O2 Delivery O2 Flow Rate FiO2 12/03/16 07:20 37.6 76 18 131/79 (96) 91 Room Air 12/02/16 23:45 Room Air 12/02/16 23:45 37.3 92 14 134/73 (93) 91 Room Air 12/02/16 16:25 Room Air 12/02/16 15:00 36.6 88 18 132/77 (95) 94 Room Air 12/02/16 12:55 37.5 86 18 151/78 93 Room Air 12/02/16 10:52 68 136/78 94 Room Air General Appearance: + mild distress Head: normocephalic, atraumatic Respiratory/Chest: no respiratory distress, no accessory muscle use Abdomen: non distended, soft, + pertinent finding (+TTP. LLQ and suprapubic regions. no peritoneal signs. ) Laboratory Results: Results Past 24 Hours Test 12/03/16 07:14 Range/Units White Blood Count 11.64 4.8-10.8 K/uL Red Blood Count 4.03 4.2-5.4 M/uL Hemoglobin 11.4 12.0-16.0 g/dL Hematocrit 34.4 37-47 % Mean Corpuscular Volume 85.4 80-100 fL Mean Corpuscular Hemoglobin 28.3 25-34 pg Mean Corpuscular Hemoglobin Concent 33.1 32-36 g/dl Platelet Count 185 130-400 K/uL Mean Platelet Volume 9.4 7.4-10.4 fL Neutrophils (%) (Auto) 90.2 % Lymphocytes (%) (Auto) 4.6 % Monocytes (%) (Auto) 4.5 % Eosinophils (%) (Auto) 0.3 % Basophils (%) (Auto) 0.1 % Neutrophils # (Auto) 10.51 1.4-6.5 K/uL Lymphocytes # (Auto) 0.54 1.2-3.4 K/uL Monocytes # (Auto) 0.52 0.11-0.59 K/uL Eosinophils # (Auto) 0.03 0-0.5 K/uL Basophils # (Auto) 0.01 0-0.2 K/uL RDW Standard Deviation 42.8 36.4-46.3 fL RDW Coefficient of Variation 13.8 11.5-14.5 % Immature Granulocyte % (Auto) 0.3 % Immature Granulocyte # (Auto) 0.03 0.00-0.02 K/uL Sodium Level 141 136-145 mmol/L Potassium Level 3.2 3.5-5.1 mmol/L Chloride Level 108 98-107 mmol/L Carbon Dioxide Level 27 21-32 mmol/L Anion Gap 6.0 3-11 mmol/L Blood Urea Nitrogen 9 7-18 mg/dl Creatinine 0.53 0.60-1.20 mg/dl Est Creatinine Clear Calc Drug Dose 95.2 ml/min Estimated GFR () 115.5 Estimated GFR (Non- 99.6 BUN/Creatinine Ratio 16.6 10-20 Random Glucose 103 70-99 mg/dl Calcium Level 8.7 8.5-10.1 mg/dl Assessment & Plan severe diverticulitis/micro perf still not out of the patton regarding surgery. we discussed options.pt wants to wait for now. I agree with continued conservative care for now she is moving around freely in her room abdomen soft/non-rigid WBC decreased slightly afrbrile. continue NPO/IV antibiotics. if clinically worsens may need EX -lap Dr. Ford covering for weekend.
[2016-12-03 15:45] VITALS: BP 153/79; PULSE 99; TEMP 37.3; O2SAT 89
[2016-12-03] MEDS: POTASSIUM CHLR 10 MEQ / WTR 10 MEQ in PREMIXED WATER 100 ML IV SCH ×2 (16:23→17:56)
[2016-12-03] MEDS ORDERED: NURSING VERBAL MED ORDER ONE (18:00)
[2016-12-03 23:20] VITALS: BP 118/73; PULSE 75; TEMP 36.6; O2SAT 90
[2016-12-04] VITALS (9 sets, daily range): BP systolic 126–177; BP diastolic 77–94; PULSE 78–96; TEMP 36.3–37; O2SAT 91–97
[2016-12-04] MEDS: D5NSS + 20MEQ KCL 1,000 ML IV SCH ×4 (03:22→23:21)
[2016-12-04] MEDS: CIPROFLOXACIN / D5W 400 MG in PREMIXED IN D5W 200 ML IV SCH ×2 (03:22→21:17)
[2016-12-04] MEDS: ACETAMINOPHEN IV 100 ML IV PRN (03:22)
[2016-12-04] MEDS: METRONIDAZOLE / NSS 500 MG in PREMIXED NSS 100 ML IV SCH ×3 (05:54→23:20)
[2016-12-04] MEDS: LEVOTHYROXINE 112 MCG TAB PO SCH ×2 (05:54→06:00)
[2016-12-04] MEDS: ONDANSETRON INJ 2 MG/ML 2 ML VIAL IV PRN ×2 (07:34→12:55)
[2016-12-04] MEDS: HYDROmorphone INJ 1 MG/ML SYR IV PRN ×3 (07:34→12:53)
[2016-12-04 08:01] LABS: BASO % 0.1 %; BASO ABS # 0.01 K/uL (0-0.2); COMPLETE YES; EOS % 1.8 %; HEMATOCRIT 35.1 % (37-47); IG% 0.3 %; LYMPH % 14.4 %; LYMPH ABS # 1.04 K/uL (1.2-3.4); MEAN CELL VOLUME 86.9 fL (80-100); MEAN CORPUSCULAR HEMOGLOBIN 28.7 pg (25-34); MEAN PLATELET VOLUME 9.2 fL (7.4-10.4); MONO % 8.6 %; NEUT % 74.8 %; PLATELET COUNT 184 K/uL (130-400); RED BLOOD COUNT 4.04 M/uL (4.2-5.4); WHITE BLOOD COUNT 7.24 K/uL (4.8-10.8)
[2016-12-04 08:47] LABS: ALB/GLOB RATIO 0.8 (0.9-2); BUN/CREATININE RATIO 8.4 (10-20); CALCIUM 8.7 mg/dl (8.5-10.1); CREATININE 0.5 mg/dl (0.60-1.20); POTASSIUM 3.8 mmol/L (3.5-5.1)
[2016-12-04] MEDS: AMLODIPINE BESYLATE 5 MG TAB PO SCH (09:00)
[2016-12-04] MEDS: ESCITALOPRAM OXALATE 10 MG TAB PO SCH (09:00)
[2016-12-04] MEDS: TRIAMTERENE/HCTZ 37.5/25MG CAP PO SCH (09:00)
--- NOTE | 2016-12-04 11:08 | Surgery Progress Note ---
Surgery Progress Note Date of Service Dec 04, 2016. Subjective Patient examined at bedside this morning. Afebrile, vitals stable on room air overnight, no acute events. Called to bedside around 7:30am this morning due to patient having increased pain - states she went to bathroom to have a BM, felt something "pop". She has continued to have loose BMs. Continues to have diffuse abdominal pain, but no rebound / guarding. She is anxious and tearful on exam, states she is "worried about everything". When distracted with conversation, abdomen is soft and moderately tender to palpation. Denies N/V, continues to be NPO. Objective Vital Signs: Date Time Temp Pulse Resp B/P (MAP) Pulse Ox O2 Delivery O2 Flow Rate FiO2 12/04/16 07:34 96 18 177/94 (121) 92 Room Air 12/04/16 07:10 37.0 86 19 147/79 (101) 91 Room Air 12/03/16 23:20 36.6 75 14 118/73 (88) 90 Room Air 12/03/16 23:20 Room Air 12/03/16 18:30 Room Air 12/03/16 15:45 37.3 99 20 153/79 (103) 89 Room Air General Appearance: + mild distress Head: normocephalic Neck: supple Respiratory/Chest: lungs clear, normal breath sounds, no respiratory distress Cardiovascular: regular rate, rhythm Abdomen: normal bowel sounds, non distended, soft, + tenderness Laboratory Results: Results Past 24 Hours Test 12/04/16 07:46 Range/Units White Blood Count 7.24 4.8-10.8 K/uL Red Blood Count 4.04 4.2-5.4 M/uL Hemoglobin 11.6 12.0-16.0 g/dL Hematocrit 35.1 37-47 % Mean Corpuscular Volume 86.9 80-100 fL Mean Corpuscular Hemoglobin 28.7 25-34 pg Mean Corpuscular Hemoglobin Concent 33.0 32-36 g/dl Platelet Count 184 130-400 K/uL Mean Platelet Volume 9.2 7.4-10.4 fL Neutrophils (%) (Auto) 74.8 % Lymphocytes (%) (Auto) 14.4 % Monocytes (%) (Auto) 8.6 % Eosinophils (%) (Auto) 1.8 % Basophils (%) (Auto) 0.1 % Neutrophils # (Auto) 5.42 1.4-6.5 K/uL Lymphocytes # (Auto) 1.04 1.2-3.4 K/uL Monocytes # (Auto) 0.62 0.11-0.59 K/uL Eosinophils # (Auto) 0.13 0-0.5 K/uL Basophils # (Auto) 0.01 0-0.2 K/uL RDW Standard Deviation 44.8 36.4-46.3 fL RDW Coefficient of Variation 14.1 11.5-14.5 % Immature Granulocyte % (Auto) 0.3 % Immature Granulocyte # (Auto) 0.02 0.00-0.02 K/uL Sodium Level 143 136-145 mmol/L Potassium Level 3.8 3.5-5.1 mmol/L Chloride Level 112 98-107 mmol/L Carbon Dioxide Level 26 21-32 mmol/L Anion Gap 5.0 3-11 mmol/L Blood Urea Nitrogen 4 7-18 mg/dl Creatinine 0.50 0.60-1.20 mg/dl Est Creatinine Clear Calc Drug Dose 100.9 ml/min Estimated GFR () 117.7 Estimated GFR (Non- 101.6 BUN/Creatinine Ratio 8.4 10-20 Random Glucose 97 70-99 mg/dl Calcium Level 8.7 8.5-10.1 mg/dl Total Bilirubin 0.4 0.2-1 mg/dl Aspartate Amino Transf (AST/SGOT) 56 15-37 U/L Alanine Aminotransferase (ALT/SGPT) 120 12-78 U/L Alkaline Phosphatase 122 45-117 U/L Total Protein 6.4 6.4-8.2 gm/dl Albumin 2.9 3.4-5.0 gm/dl Globulin 3.5 2.5-4.0 gm/dl Albumin/Globulin Ratio 0.8 0.9-2 Assessment & Plan Nohemi Vasquez is a 66 year old woman admitted with severe diverticulitis with micro perforation. -Discussed surgical management again with patient this morning. She would like to discuss it with her when he gets here this morning. -Leukocytosis has resolved, WBC 7 this morning; remains afebrile, vitals stable -Continue NPO, IV antibiotics -Rechecked later in the morning, sleeping comfortably -Low threshhold for operating; patient understands she will need an ostomy if surgery is done in the acute setting. Will re evaluate when arrives. Latrice Ford MD 12/04/16 Addendum: Patient re-evaluated with at bedside. Having significant pain, not adequately controlled by Dilaudid. Endorsing nausea, no vomiting. Patient agreeable to surgery. Indications, risks, benefits and potential complications of exploratory laparotomy, possible bowel resection, possible ostomy discussed with patient and her . Discussed that due to the acute inflammation, an ostomy would be created, which would likely be reversible in the future. Patient is agreeable to this. All questions answered to apparent satisfaction. Patient would like to proceed with surgery and freely signed the consent form. -Will take to OR for exploratory laparotomy, bowel resection, ostomy creation -Continue IV antibiotics Latrice Ford MD 12/04/16
[2016-12-04] MEDS: PANTOprazole INJ 40 MG in SYRINGE 0 ML IV SCH (11:18)
[2016-12-04] MEDS ORDERED: PHENYLEPHRINE HCL INJ 10 MG/ML VIAL ONE (13:49)
[2016-12-04] MEDS ORDERED: MIDAZOLAM HCL 1 MG/ML 2ML VIAL ONE (13:49)
[2016-12-04] MEDS ORDERED: DEXAMETHASONE SOD INJ 4 MG/ML VIAL ONE (13:49)
[2016-12-04] MEDS ORDERED: SUCCINYLCHOLINE CHLORIDE 20 MG/ML 10 ML VIAL IV ONE (13:49)
[2016-12-04] MEDS ORDERED: GLYCOPYRROLATE INJ 0.2 MG/ML VIAL ONE (13:49)
[2016-12-04] MEDS ORDERED: EpHEDrine SULFATE INJ 50 MG/ML AMP ONE (13:49)
[2016-12-04] MEDS ORDERED: PROPOFOL IV EMULSION 10 MG/ML 20 ML VIAL IV ONE (13:49)
[2016-12-04] MEDS ORDERED: ROCURONIUM BROMIDE 10 MG/ML 5 ML VIAL IV ONE ×2 (13:49→16:02)
[2016-12-04] MEDS ORDERED: NEOSTIGMINE METHYLSULFATE 5 MG/5 ML SYR ONE (13:49)
[2016-12-04] MEDS ORDERED: LIDOCAINE HCL 2% 2 ML VIAL (20MG/ML) ONE (13:49)
[2016-12-04] MEDS ORDERED: ONDANSETRON INJ 2 MG/ML 2 ML VIAL ONE (13:49)
[2016-12-04] MEDS ORDERED: FENTANYL CITRATE INJ 50 MCG/1 ML 2 ML VIAL ONE ×2 (13:49→18:12)
[2016-12-04] MEDS ORDERED: ONDANSETRON INJ 2 MG/ML 2 ML VIAL IV PRN (14:15)
[2016-12-04] MEDS ORDERED: HYDROmorphone INJ 1 MG/ML SYR IV PRN (14:15)
[2016-12-04] MEDS ORDERED: EpHEDrine SULFATE INJ 50 MG/ML AMP IV PRN (14:15)
[2016-12-04] MEDS ORDERED: FENTANYL CITRATE INJ 50 MCG/1 ML 2 ML VIAL IV PRN (14:15)
[2016-12-04] MEDS ORDERED: ATROPINE SULFATE 0.1 MG/ML 5ML SYR IV PRN (14:15)
[2016-12-04] MEDS ORDERED: HYDROmorphone INJ 2 MG/ML SYR/VIAL ONE (15:29)
[2016-12-04] MEDS ORDERED: LABETALOL HCL IV 5 MG/ML 20ML IV ONE (17:42)
[2016-12-04] MEDS ORDERED: NURSING VERBAL MED ORDER ONE (18:30)
--- NOTE | 2016-12-04 18:33 | Anesthesiology Progress Note ---
Anesthesia Post Op Note Date & Time Dec 04, 2016 at 18:32 Vital Signs Pain Intensity: 10.0 Vital Signs Past 12 Hours Date Time Temp Pulse Resp B/P (MAP) Pulse Ox O2 Delivery O2 Flow Rate FiO2 12/04/16 18:15 80 10 12/04/16 18:15 80 10 147/82 97 12/04/16 18:10 86 8 152/96 96 12/04/16 18:10 88 8 91 12/04/16 18:05 150/90 12/04/16 18:00 82 13 151/79 94 12/04/16 18:00 82 13 12/04/16 17:56 130/93 12/04/16 17:55 85 14 95 12/04/16 17:55 89 22 94 12/04/16 17:51 136/73 12/04/16 17:46 167/88 12/04/16 17:45 102 10 94 12/04/16 17:45 100 10 12/04/16 17:42 186/101 12/04/16 17:40 120 12 94 12/04/16 17:40 36.5 103 10 186/101 98 Oxymask 10 12/04/16 17:40 118 12 196/113 97 12/04/16 07:34 96 18 177/94 (121) 92 Room Air 12/04/16 07:34 Room Air 12/04/16 07:10 37.0 86 19 147/79 (101) 91 Room Air Notes Mental Status: alert / awake / arousable, participated in evaluation Pt Amnestic to Procedure: Yes Nausea / Vomiting: adequately controlled Pain: adequately controlled Airway Patency, RR, SpO2: stable & adequate BP & HR: stable & adequate Hydration State: stable & adequate Anesthetic Complications: no major complications apparent Pain much improved. Awake and conversant. Weakned to NC oxygen while talking to patient. Appears ok for transfer to floor. 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
--- NOTE | 2016-12-04 18:38 | [facility] Operative Report ---
Operative Report Operative Date Dec 04, 2016. Pre-Operative Diagnosis Severe acute diverticulitis with micro perforation Post-Operative Diagnosis Severe acute diverticulitis with micro perforation Procedure(s) Performed Exploratory Laparotomy, Bowel resection, Ostomy creation Surgeon Latrice Ford MD Textile Dyer Surgeon(s) Trevon Murphy MD Estimated Blood Loss 200cc Findings Severely inflamed sigmoid colon with perforation Fluids 1400 Specimens 1. Peritneal fluid to cytology 2. Sigmoid colon to pathology Drains None Anesthesia General endotracheal anesthesia Complication(s) None Disposition Recovery Room / PACU Indications Nohemi Vasquez is a 66 year old woman admitted with acute diverticulitis and microperforation. Indications, risks, benefits and potential complications of exploratory laparotomy, possible bowel resection, possible ostomy discussed with patient and her . Discussed that due to the acute inflammation, an ostomy would be created, which would likely be reversible in the future. Patient is agreeable to this. All questions answered to apparent satisfaction. Patient would like to proceed with surgery and freely signed the consent form. Description of Procedure Patient was brought to the operating room and identified as Nohemi Vasquez, 04/14. She was placed on the operating table in supine position. Anesthesia was induced and she was intubated without difficulty. A frankel catheter was placed. The abdomen was prepped and draped in sterile fashion. A time out was held, verifying correct patient, operation, equipment, antiobiotics, allergies, and personnel. A lower midline incision was made and carried down through subcutaneous tissue. Fascia was identified, and carefully incised. Peritoneum was elevated and opened using Metzenbaum scissors. Upon entry murky fluid was encountered; this was sampled and sent for microbiology / cytology. The abdomen was explored. The sigmoid colon was found to be extemely thickened and inflamed. Adhesions were carefully taken down. The omentum and small bowel were packed cephalad to expose the sigmoid colon. Lateral adhesions were taken down too dissect the colon circumferentially. The left White line of Told was taken down to mobilize the left colon. Once mobilized, a JULIANE stapler blue load was used to staple off the proximal margin of the specimen at healthy, non inflamed area of colon. The mesentery was ligated using the Ligasure taking care to stay close to the sigmoid colon down to the sacral promontory. At this point, the upper rectum was found to be normal, non inflamed tissue. Once dissected out, a TA stapler blue load was used to staple off the distal portion of the specimen at the rectosigmoid junction. The diseased sigmoid colon was liberated from the abdomen and passed off the field to be taken to pathology. Two Prolene sutures were placed on the remaining rectal stump at the staple line to aid in identification at future operations. The area of dissection was carefully inspected for hemostasis. The abdomen was irrigated with 2 Liters of warm, sterile saline. Next, an aperature was made in the left abdomen to allow for a descending end colostomy. After making a circular skin incision, anterior fascia was incised with a cruciate incision; muscle was split, and posterior sheath was also incised with a cruciate incision. The aperature was verified to be large enough to accomodate the colostomy without being too tight. The end colostomy was brought through, and verified to be without twists and without undue tension. This was covered while the abdomen was closed. The instrument and sponge counts were verified to be correct x 2 by the nurse in charge. Fascia was closed using #1 looped PDS in running fashion. Skin was closed with skin aylin, and 1/2" plain ribbon packing was loosely packed between aylin. The ostomy was then matured in Marisa fashion using 3-0 vicryl sutures. A sterile dressing was placed over the midline incision and an ostomy appliance was placed over the ostomy. Patient was then awakened from anesthesia, extubated without difficulty, and was taken to PACU, having suffered no untoward events. I attest to the content of the Intraoperative Record and any orders documented therein. Any exceptions are noted below.
[2016-12-04] MEDS ORDERED: HYDROmorphone HCL 0.5MG/ML 50 ML CASSETTE ONE (19:12)
--- NOTE | 2016-12-04 19:34 | PROGRESS NOTE ---
DATE: 12/04/2016 HOSPITALIST PROGRESS NOTE HISTORY OF PRESENT ILLNESS: Mrs. Vasquez is a very pleasant 66-year-old white female with a history of hypertension, dyslipidemia, asthma, generalized anxiety disorder, hypothyroidism, GERD, breast cancer, and diverticulosis coli, who was admitted acutely for acute diverticulitis with perforation and abscess formation. The patient was taken to the OR today and underwent laparotomy with partial colon resection and creation of a colostomy. She just arrived back to the room at the present time. She does complain of some mild nausea, but has not had any vomiting. She denies any chest pain, heaviness, tightness, or pressure. No shortness of breath. No headache or stiff neck. No fevers or chills. The patient denies any urinary symptoms. PHYSICAL EXAMINATION: VITAL SIGNS: Temperature is 36.7 degrees Celsius, pulse 77 and regular, respiratory rate 12 and unlabored, blood pressure is 147/77, and SPO2 is 96% on 4 liters of oxygen via nasal cannula. GENERAL: The patient is in no acute distress. She is somewhat somnolent, but arouses to verbal stimuli. HEENT: Sclerae are anicteric. Face is symmetric. Mucous membranes moist. NECK: Without thyromegaly, adenopathy or JVD. Carotid upstrokes +2 bilaterally. CHEST AND LUNGS: Clear to auscultation throughout all lung baca; no wheezes, rales, or rhonchi. CARDIOVASCULAR: S1 and S2 are regular without murmur, gallop or rub. ABDOMEN: Surgical dressing in place, colostomy present. EXTREMITIES: Without clubbing, cyanosis or edema. ASSESSMENT: 1. Acute diverticulitis with perforation and abscess formation. 2. Postoperative day #0 exploratory laparotomy with partial colon resection and colostomy creation. 3. Mild nausea. 4. Hypertension. 5. Hypercholesterolemia. 6. Asthma, quiescent. 7. Hypothyroidism 8. History of breast cancer. 9. History of gastroesophageal reflux disease. PLAN: 1. The patient is hemodynamically stable at this time. 2. Continue analgesics as needed. 3. Continue antiemetics as needed for nausea. 4. Continue IV Cipro and Flagyl. 5. Continue IV fluids. 6. Continue usual antihypertensive regimen of Norvasc 2.5 mg daily, Dyazide 37.5/25 one capsule daily. Continue levothyroxine. 7. Continue Protonix 40 mg IV for GI protection. 8. Continue inhalers as directed. 9. We will continue to follow along with the surgical team. Attending Attestation: I agree with the muñoz components of AFSHAN Adames's consultation documentation. Olaf Hughes MD [facility]
[2016-12-04] MEDS ORDERED: NALOXONE HCL 0.4 MG/1 ML VIAL/CARP IV PRN (20:45)
[2016-12-04] MEDS: HYDROmorphone HCL 0.5MG/ML 50 ML CASSETTE IV PRN (23:14)
[2016-12-05] VITALS (9 sets, daily range): BP systolic 138–174; BP diastolic 78–109; PULSE 89–97; TEMP 36.6–37.1; O2SAT 90–97
[2016-12-05] MEDS: ONDANSETRON INJ 2 MG/ML 2 ML VIAL IV PRN ×2 (05:27→13:40)
[2016-12-05] MEDS: LEVOTHYROXINE 112 MCG TAB PO SCH ×2 (05:27→05:31)
[2016-12-05] MEDS: METRONIDAZOLE / NSS 500 MG in PREMIXED NSS 100 ML IV SCH ×3 (05:27→22:39)
[2016-12-05] MEDS: HYDROmorphone HCL 0.5MG/ML 50 ML CASSETTE IV PRN ×3 (07:07→22:49)
[2016-12-05] MEDS: PROMETHAZINE HCL INJ 12.5 MG in SODIUM CHLORIDE 0.9% 50ML 50 ML IV PRN ×2 (07:41→15:08)
[2016-12-05] MEDS: D5NSS + 20MEQ KCL 1,000 ML IV SCH ×3 (07:41→23:15)
--- NOTE | 2016-12-05 08:54 | Hospitalist Progress Note ---
Hospitalist Progress Note Date of Service Dec 05, 2016. (Antonieta Temple PA-C) Subjective Pt evaluation today including: conversation w/ patient, conversation w/ family , physical exam, chart review, lab review Pain: Moderate PO Intake: Clear liquid diet Voiding: frankel catheter in place The patient was seen and examined this morning with her Bill at bedside. Pt has her eyes closed, cool washcloth on her forehead, and participates minimally in conversation. Her c/o is abdominal soreness and discomfort with minimal movement. Dilaudid x ray electronics wiring technician is on board, but when this is administered she gets nauseous. Pt attempted to eat jello this morning but has minimal appetite and again is slightly nauseous. She denies lightheadedness, dizziness. She has not yet gotten up to walk about the room. Constitutional: No fever, No chills, No sweats Eyes: No redness, No diplopia ENT: No nasal symptoms, No trouble swallowing Respiratory: No shortness of breath, No dyspnea at rest, No hemoptysis Cardiovascular: No chest pain, No edema, No palpitations Abdomen: + pain, + nausea, No vomiting, No diarrhea, No constipation Musculoskeletal: No joint pain, No swelling Female : + dysuria Neurologic: No weakness, No numbness/tingling Endo: No fatigue Skin: No rash, No itch (Antonieta Temple, MARIANA) Objective Vital Signs Date Time Temp Pulse Resp B/P (MAP) Pulse Ox O2 Delivery O2 Flow Rate FiO2 12/05/16 07:43 36.6 92 20 158/90 (112) 90 Room Air 12/05/16 03:47 36.6 92 16 138/78 (98) 97 Nasal Cannula 2.0 12/04/16 23:20 36.4 94 16 146/83 (104) 96 Nasal Cannula 4.0 12/04/16 23:20 Nasal Cannula 4.0 12/04/16 22:00 36.4 86 16 126/79 (95) 96 Nasal Cannula 4.0 12/04/16 20:57 36.5 82 20 144/82 (102) 95 Nasal Cannula 4.0 12/04/16 20:02 36.3 78 18 145/83 (103) 95 Nasal Cannula 4.0 12/04/16 19:30 36.3 79 16 137/79 (98) 97 Nasal Cannula 4.0 12/04/16 19:20 96 Nasal Cannula 4.0 12/04/16 19:12 36.7 79 16 147/77 (100) 96 Nasal Cannula 4.0 12/04/16 19:08 96 Nasal Cannula 4.0 12/04/16 18:46 76 12 96 12/04/16 18:46 77 12 12/04/16 18:45 147/77 12/04/16 18:42 79 12 96 12/04/16 18:42 80 10 96 12/04/16 18:40 147/77 12/04/16 18:40 36.7 78 12 147/77 96 Nasal Cannula 4 12/04/16 18:35 143/78 12/04/16 18:32 79 10 97 12/04/16 18:32 80 10 12/04/16 18:31 81 12 96 12/04/16 18:31 85 15 97 12/04/16 18:30 153/83 12/04/16 18:25 148/81 12/04/16 18:21 76 10 98 12/04/16 18:21 76 10 98 12/04/16 18:20 145/73 12/04/16 18:16 76 11 98 12/04/16 18:16 77 11 12/04/16 18:15 80 10 12/04/16 18:15 80 10 147/82 97 12/04/16 18:10 86 8 152/96 96 12/04/16 18:10 88 8 91 12/04/16 18:05 150/90 12/04/16 18:00 82 13 151/79 94 12/04/16 18:00 82 13 12/04/16 17:56 130/93 12/04/16 17:55 85 14 95 12/04/16 17:55 89 22 94 12/04/16 17:51 136/73 12/04/16 17:46 167/88 12/04/16 17:45 102 10 94 12/04/16 17:45 100 10 12/04/16 17:42 186/101 12/04/16 17:40 120 12 94 12/04/16 17:40 36.5 103 10 186/101 98 Oxymask 10 12/04/16 17:40 118 12 196/113 97 (Antonieta Temple PA-C) Physical Exam General Appearance: WD/WN, + mild distress ENT: hearing grossly normal, pharynx normal Neck: supple, no JVD Respiratory/Chest: lungs clear, no accessory muscle use, + pertinent finding ( on room air, diminished breath sounds at bases bilaterally) Cardiovascular: no murmur, + tachycardia Abdomen: + pertinent finding (hypoactive bowel sounds, abdominal dressing is C/ D/I, ostomy in LLQ draining slightly pink fluid, + appropriately tender to palpation, mildly distended. ) Extremities: non-tender, no pedal edema, no calf tenderness Neurologic/Psychiatric: alert, normal mood/affect, oriented x 3 Skin: normal color, warm/dry (Antonieta Temple, MARIANA) Laboratory Results Last 24 Hours Test 12/05/16 04:44 (Antonieta Temple PA-C) Assessment and Plan 66-year-old F withPMHx of hypertension, dyslipidemia, asthma, NAMITA, hypothyroidism, GERD, breast cancer, and diverticulosis, ecoli, who was admitted acutely for acute diverticulitis with perforation and abscess formation. Acute diverticulitis with micro perforation/ abscess formation - Admitted under general surgery team - POD #1 s/p exploratory laparotomy with Todd's procedure by Dr. Ford - continue abx with cipro and flagyl - Analgesia per primary team - dilaudid x ray electronics wiring technician for now. Attempt to convert to oral medications and transition off HEALTHCARE BUSINESS ANALYST. - Diet advanced to clears today per gen surg - Antiemetics on board prn - Follow cbc, initially presented with leukocytosis and is trending downward. - Ostomy draining pink fluid this morning E. Coli UTI - Sensitivity resistant to multiple abx with cipro included. So will add on cefdinir 300 mg PO Q12H. HTN - Cont amlodipine 2.5 mg daily, triamterene/hctz 37.2/25 mg daily Asthma - Continue symbicort Depression/ NAMITA - Cont Lexapro 10 mg daily Hypothyroidism - Cont levothyroxine 112 mcg daily DVT ppx: teds, scds, lovenox Disposition: From home, lives with , discharge per primary team (Antonieta Temple, MARIANA) PA Physician Supervision Note: I interviewed and examined the patient. Discussed with Antonieta Temple PAC and agree with findings and plan as documented in the note. Any exceptions or clarifications are listed here: None pt is still very nauseated and not tolerating advancement of diet. zofran with little help but some help with phenergan vitals show systolic hypertension abd is soft tender and with guarding continue supportive post operative care and antibiotics, if nausea persists with vomiting re imaging of abdomen will be warranted HEALTHCARE BUSINESS ANALYST still required given blood pressure elevation increase norvasc and add prn hydralazine Documented By: Ayad Jacobs (Ayad Jacobs M.D.)
[2016-12-05] MEDS: CIPROFLOXACIN / D5W 400 MG in PREMIXED IN D5W 200 ML IV SCH ×2 (09:16→20:22)
--- NOTE | 2016-12-05 09:36 | Surgery Progress Note ---
Surgery Progress Note Date of Service Dec 05, 2016. Subjective Patient examined at bedside this morning. Afebrile, vitals stable on 2L O2 via NC, no acute events overnight. Patient is having some abdominal pain - states the QUALITY ASSURANCE TEST PROGRAM MANAGER works, but then she falls asleep and wakes up later in pain. Tolerating ice chips without N/V. Frankel remains in place and functioning. Ostomy pink, well perfused, bowel sweat only in ostomy appliance. Patient has not yet been out of bed. Objective Vital Signs: Date Time Temp Pulse Resp B/P (MAP) Pulse Ox O2 Delivery O2 Flow Rate FiO2 12/05/16 07:43 36.6 92 20 158/90 (112) 90 Room Air 12/05/16 03:47 36.6 92 16 138/78 (98) 97 Nasal Cannula 2.0 12/04/16 23:20 36.4 94 16 146/83 (104) 96 Nasal Cannula 4.0 12/04/16 23:20 Nasal Cannula 4.0 12/04/16 22:00 36.4 86 16 126/79 (95) 96 Nasal Cannula 4.0 12/04/16 20:57 36.5 82 20 144/82 (102) 95 Nasal Cannula 4.0 12/04/16 20:02 36.3 78 18 145/83 (103) 95 Nasal Cannula 4.0 12/04/16 19:30 36.3 79 16 137/79 (98) 97 Nasal Cannula 4.0 12/04/16 19:20 96 Nasal Cannula 4.0 12/04/16 19:12 36.7 79 16 147/77 (100) 96 Nasal Cannula 4.0 12/04/16 19:08 96 Nasal Cannula 4.0 12/04/16 18:46 76 12 96 12/04/16 18:46 77 12 12/04/16 18:45 147/77 12/04/16 18:42 79 12 96 12/04/16 18:42 80 10 96 12/04/16 18:40 147/77 12/04/16 18:40 36.7 78 12 147/77 96 Nasal Cannula 4 12/04/16 18:35 143/78 12/04/16 18:32 79 10 97 12/04/16 18:32 80 10 12/04/16 18:31 81 12 96 12/04/16 18:31 85 15 97 12/04/16 18:30 153/83 12/04/16 18:25 148/81 12/04/16 18:21 76 10 98 12/04/16 18:21 76 10 98 12/04/16 18:20 145/73 12/04/16 18:16 76 11 98 12/04/16 18:16 77 11 12/04/16 18:15 80 10 12/04/16 18:15 80 10 147/82 97 12/04/16 18:10 86 8 152/96 96 12/04/16 18:10 88 8 91 12/04/16 18:05 150/90 12/04/16 18:00 82 13 151/79 94 12/04/16 18:00 82 13 12/04/16 17:56 130/93 12/04/16 17:55 85 14 95 12/04/16 17:55 89 22 94 12/04/16 17:51 136/73 12/04/16 17:46 167/88 12/04/16 17:45 102 10 94 12/04/16 17:45 100 10 12/04/16 17:42 186/101 12/04/16 17:40 120 12 94 12/04/16 17:40 36.5 103 10 186/101 98 Oxymask 10 12/04/16 17:40 118 12 196/113 97 General Appearance: WD/WN, + mild distress Head: normocephalic Neck: supple Respiratory/Chest: lungs clear, normal breath sounds Cardiovascular: regular rate, rhythm Abdomen: non distended (no rebound / guarding), soft, + tenderness ( appropriately tender to palpation) Incision(s): clean, dry, intact, findings (Ostomy pink, well perfused, bowel sweat only in ostomy appliance) Laboratory Results: Test 12/02/16 08:18 12/02/16 08:40 12/04/16 07:46 12/05/16 09:03 Urine Color YELLOW Urine Appearance CLOUDY Urine pH 7.0 Urine Specific [place] 1.019 Urine Protein NEG Urine Glucose (UA) NEG Urine Ketones NEG Urine Occult Blood TRACE Urine Nitrite POS Urine Bilirubin NEG Urine Urobilinogen NEG Urine Leukocyte Esterase MODERATE Urine WBC (Auto) >30 Urine RBC (Auto) 0-4 Urine Hyaline Casts (Auto) 1-5 Urine Epithelial Cells (Auto) 0-5 Urine Bacteria (Auto) 4+ Lipase 130 White Blood Count 7.24 Red Blood Count 4.04 Hemoglobin 11.6 Hematocrit 35.1 Mean Corpuscular Volume 86.9 Mean Corpuscular Hemoglobin 28.7 Mean Corpuscular Hemoglobin Concent 33.0 Platelet Count 184 Mean Platelet Volume 9.2 Neutrophils (%) (Auto) 74.8 Lymphocytes (%) (Auto) 14.4 Monocytes (%) (Auto) 8.6 Eosinophils (%) (Auto) 1.8 Basophils (%) (Auto) 0.1 Neutrophils # (Auto) 5.42 Lymphocytes # (Auto) 1.04 Monocytes # (Auto) 0.62 Eosinophils # (Auto) 0.13 Basophils # (Auto) 0.01 RDW Standard Deviation 44.8 RDW Coefficient of Variation 14.1 Immature Granulocyte % (Auto) 0.3 Immature Granulocyte # (Auto) 0.02 Sodium Level 143 143 Potassium Level 3.8 3.8 Chloride Level 112 109 Carbon Dioxide Level 26 29 Anion Gap 5.0 5.0 Blood Urea Nitrogen 4 5 Creatinine 0.50 0.47 Est Creatinine Clear Calc Drug Dose 100.9 107.4 Estimated GFR () 117.7 120.1 Estimated GFR (Non- 101.6 103.7 BUN/Creatinine Ratio 8.4 11.0 Random Glucose 97 131 Calcium Level 8.7 8.4 Total Bilirubin 0.4 0.4 Aspartate Amino Transferase (AST) 56 15 Alanine Aminotransferase (ALT) 120 75 Alkaline Phosphatase 122 95 Total Protein 6.4 5.8 Albumin 2.9 2.4 Globulin 3.5 3.4 Albumin/Globulin Ratio 0.8 0.7 Test 12/05/16 10:14 12/05/16 10:17 White Blood Count 8.43 Red Blood Count 4.25 Hemoglobin 12.4 Hematocrit 36.0 Mean Corpuscular Volume 84.7 Mean Corpuscular Hemoglobin 29.2 Mean Corpuscular Hemoglobin Concent 34.4 Platelet Count 233 Mean Platelet Volume 9.2 Neutrophils (%) (Auto) 83.5 Lymphocytes (%) (Auto) 7.5 Monocytes (%) (Auto) 8.8 Eosinophils (%) (Auto) 0.0 Basophils (%) (Auto) 0.0 Neutrophils # (Auto) 7.04 Lymphocytes # (Auto) 0.63 Monocytes # (Auto) 0.74 Eosinophils # (Auto) 0.00 Basophils # (Auto) 0.00 RDW Standard Deviation 43.8 RDW Coefficient of Variation 14.1 Immature Granulocyte % (Auto) 0.2 Immature Granulocyte # (Auto) 0.02 Prothrombin Time 11.4 Prothrombin Time INR 1.1 Results Past 24 Hours Test 12/05/16 09:03 Range/Units Microbiology Results 12/04/16 Gram Stain - Final, Resulted 12/04/16 Bacterial Culture, Resulted Pending Assessment & Plan Nohemi Vasquez is a 66 year old woman admitted with severe diverticulitis with micro perforation who is now POD 1 s/p exploratory laparotomy with Todd's procedure. There were no complications, patient tolerated the procedure well. 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: QUALITY ASSURANCE TEST PROGRAM MANAGER, will add tramadol this morning for longer lasting effect -Diet: Clear liquids as tolerated -IVF: Continue fluids at 125ml/hr for now -Follow up labs, AM labs still pending -Keep frankel in place until patient is able to ambulate to bathroom -DVT ppx with lovenox 40mg daily -Continue IV cipro / flagyl -Appreciate Medicine team recommendations -Continue UTILITY LINEMAN medications -Encourage at least out of bed to chair today -Will need ostomy care teaching for management of ostomy at home (sometime prior to discharge) Latrice Ford MD 12/05/16 Addendum: AM labs reviewed - no leukocytosis, Hgb stable. No electrolyte abnormalities. Will make the above changes in today's plan, trend progress.
[2016-12-05 09:40] LABS: CALCIUM 8.4 mg/dl (8.5-10.1); CREATININE 0.47 mg/dl (0.60-1.20); POTASSIUM 3.8 mmol/L (3.5-5.1)
[2016-12-05 09:42] LABS: ALB/GLOB RATIO 0.7 (0.9-2)
[2016-12-05] MEDS: ESCITALOPRAM OXALATE 10 MG TAB PO SCH (09:53)
[2016-12-05] MEDS: CEFDINIR 300 MG CAP PO SCH ×2 (09:53→20:23)
[2016-12-05] MEDS: TRIAMTERENE/HCTZ 37.5/25MG CAP PO SCH (09:53)
[2016-12-05] MEDS: AMLODIPINE BESYLATE 5 MG TAB PO SCH (09:53)
[2016-12-05] MEDS: PANTOprazole INJ 40 MG in SYRINGE 0 ML IV SCH (09:54)
[2016-12-05 10:27] LABS: IG% 0.2 %; LYMPH % 7.5 %; LYMPH ABS # 0.63 K/uL (1.2-3.4); MEAN CELL VOLUME 84.7 fL (80-100); MEAN CORPUSCULAR HEMOGLOBIN 29.2 pg (25-34); MEAN PLATELET VOLUME 9.2 fL (7.4-10.4); MONO % 8.8 %; NEUT % 83.5 %; PLATELET COUNT 233 K/uL (130-400); RED BLOOD COUNT 4.25 M/uL (4.2-5.4); WHITE BLOOD COUNT 8.43 K/uL (4.8-10.8)
[2016-12-05 10:38] LABS: COMPLETE YES; MEAN CORPUSCULAR HGB CONC 34.4 g/dl (32-36)
[2016-12-05 10:40] LABS: INR 1.1 (0.9-1.1); PROTHROMBIN TIME (PATIENT) 11.4 SECONDS (9.0-12.0)
[2016-12-05] MEDS: TRAMADOL HCL 50 MG TAB PO PRN (12:48)
[2016-12-05] MEDS ORDERED: HydrALAZINE HCL 20 MG/ML VIAL IV PRN (18:00)
[2016-12-06 03:32] VITALS: BP 161/91; PULSE 101; TEMP 37; O2SAT 90
[2016-12-06] MEDS: METRONIDAZOLE / NSS 500 MG in PREMIXED NSS 100 ML IV SCH ×3 (06:01→21:24)
[2016-12-06] MEDS: LEVOTHYROXINE 112 MCG TAB PO SCH (06:01)
[2016-12-06] MEDS: D5NSS + 20MEQ KCL 1,000 ML IV SCH ×2 (06:04→17:53)
[2016-12-06] MEDS: HYDROmorphone HCL 0.5MG/ML 50 ML CASSETTE IV PRN ×3 (06:56→23:09)
--- NOTE | 2016-12-06 07:50 | Surgery Progress Note ---
Surgery Progress Note Date of Service Dec 06, 2016. Subjective Patient examined at bedside this morning. Afebrile, vitals stable on room air, no acute events overnight. Pain is much better controlled today. Patient is less sleepy. Tolerating sips of clear liquids without N/V. Ostomy pink, edematous, bowel sweat only in appliance. Abdomen softer, much less tender to palpation. Frankel remains in place and functioning. Was out of bed to chair yesterday, has not attempted ambulation. Objective Vital Signs: Date Time Temp Pulse Resp B/P (MAP) Pulse Ox O2 Delivery O2 Flow Rate FiO2 12/06/16 03:32 37.0 101 16 161/91 (114) 90 Room Air 12/05/16 23:15 Room Air 12/05/16 23:05 37.1 89 18 153/89 (110) 92 Room Air 12/05/16 19:19 37.0 97 18 153/88 (109) 92 Room Air 12/05/16 16:56 162/90 (114) 12/05/16 16:18 164/90 (114) 12/05/16 15:15 Nasal Cannula 2.0 12/05/16 15:01 36.8 89 18 174/109 (130) 95 Nasal Cannula 2.0 12/05/16 13:58 90 Room Air 12/05/16 13:58 Nasal Cannula 2.0 12/05/16 11:45 Nasal Cannula 2.0 12/05/16 11:37 37.1 91 19 156/83 (107) 90 Room Air 12/05/16 10:38 Room Air General Appearance: WD/WN, no apparent distress Head: normocephalic Neck: supple Respiratory/Chest: lungs clear, normal breath sounds Cardiovascular: regular rate, rhythm Abdomen: normal bowel sounds, non distended, soft, + tenderness (appropriately tender to palpation) Incision(s): clean, dry, intact Laboratory Results: Results Past 24 Hours Test 12/05/16 09:03 12/05/16 10:14 12/05/16 10:17 Range/Units Sodium Level 143 136-145 mmol/L Potassium Level 3.8 3.5-5.1 mmol/L Chloride Level 109 98-107 mmol/L Carbon Dioxide Level 29 21-32 mmol/L Anion Gap 5.0 3-11 mmol/L Blood Urea Nitrogen 5 7-18 mg/dl Creatinine 0.47 0.60-1.20 mg/dl Est Creatinine Clear Calc Drug Dose 107.4 ml/min Estimated GFR () 120.1 Estimated GFR (Non- 103.7 BUN/Creatinine Ratio 11.0 10-20 Random Glucose 131 70-99 mg/dl Calcium Level 8.4 8.5-10.1 mg/dl Total Bilirubin 0.4 0.2-1 mg/dl Aspartate Amino Transf (AST/SGOT) 15 15-37 U/L Alanine Aminotransferase (ALT/SGPT) 75 12-78 U/L Alkaline Phosphatase 95 45-117 U/L Total Protein 5.8 6.4-8.2 gm/dl Albumin 2.4 3.4-5.0 gm/dl Globulin 3.4 2.5-4.0 gm/dl Albumin/Globulin Ratio 0.7 0.9-2 White Blood Count 8.43 4.8-10.8 K/uL Red Blood Count 4.25 4.2-5.4 M/uL Hemoglobin 12.4 12.0-16.0 g/dL Hematocrit 36.0 37-47 % Mean Corpuscular Volume 84.7 80-100 fL Mean Corpuscular Hemoglobin 29.2 25-34 pg Mean Corpuscular Hemoglobin Concent 34.4 32-36 g/dl Platelet Count 233 130-400 K/uL Mean Platelet Volume 9.2 7.4-10.4 fL Neutrophils (%) (Auto) 83.5 % Lymphocytes (%) (Auto) 7.5 % Monocytes (%) (Auto) 8.8 % Eosinophils (%) (Auto) 0.0 % Basophils (%) (Auto) 0.0 % Neutrophils # (Auto) 7.04 1.4-6.5 K/uL Lymphocytes # (Auto) 0.63 1.2-3.4 K/uL Monocytes # (Auto) 0.74 0.11-0.59 K/uL Eosinophils # (Auto) 0.00 0-0.5 K/uL Basophils # (Auto) 0.00 0-0.2 K/uL RDW Standard Deviation 43.8 36.4-46.3 fL RDW Coefficient of Variation 14.1 11.5-14.5 % Immature Granulocyte % (Auto) 0.2 % Immature Granulocyte # (Auto) 0.02 0.00-0.02 K/uL Prothrombin Time 11.4 9.0-12.0 SECONDS Prothromb Time International Ratio 1.1 0.9-1.1 Assessment & Plan Nohemi Vasquez is a 66 year old woman admitted with severe diverticulitis with micro perforation who is now POD 2 s/p exploratory laparotomy with Todd's procedure. There were no complications, patient tolerated the procedure well. 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: FOOD SERVICE CASHIER, Tramadol -Diet: Clear liquids as tolerated -IVF: Continue fluids at 100ml/hr until PO intake is adequate -Follow up labs, AM labs still pending -Keep frankel in place until patient is able to ambulate to bathroom -DVT ppx with lovenox 40mg daily -Continue IV cipro / flagyl -Appreciate Medicine team recommendations -Continue INSURANCE ASSISTANT medications -Encourage at least out of bed to chair today, attempt ambulation if possible -Will change abdominal wound dressings later today -Will need ostomy care teaching for management of ostomy at home (sometime prior to discharge) Latrice Ford MD 12/06/16
[2016-12-06 08:26] VITALS: O2SAT 94
[2016-12-06 08:27] VITALS: BP 154/93; PULSE 94; TEMP 37.1; O2SAT 94
--- NOTE | 2016-12-06 08:37 | Hospitalist Progress Note ---
Hospitalist Progress Note Date of Service Dec 06, 2016. (Antonieta Temple PA-C) Subjective Pt evaluation today including: conversation w/ patient, physical exam, chart review, lab review, review of studies Pain: Abdominal PO Intake: Clears, slowly improving Voiding: frankel catheter in place The patient was seen and examined this morning. Pt reports feeling slightly better today compared to yesterday, she remains slightly nauseous, and tolerating minimal amounts of clear liquids, has not attempted soft/solids. She is more awake today and reports her pain is better controlled. She has not needed to push FISHER EEL as often today. She denies any lightheadedness, dizziness. Pt has not ambulated yet. Pt was encouraged to use incentive spirometry at bedside. Constitutional: + sweats, No fever, No chills ENT: No nasal symptoms, No sore throat, No trouble swallowing Respiratory: No cough, No shortness of breath Cardiovascular: No chest pain, No edema Abdomen: + see HPI, + pain Musculoskeletal: No joint pain, No muscle pain, No swelling Female : + problem reported (frankel catheter in place) Neurologic: + weakness, + numbness/tingling Endo: + fatigue Skin: No rash, No itch (Antonieta Temple PA-C) Objective Vital Signs Date Time Temp Pulse Resp B/P (MAP) Pulse Ox O2 Delivery O2 Flow Rate FiO2 12/06/16 08:27 37.1 94 14 154/93 (113) 94 Room Air 12/06/16 08:26 94 Room Air 12/06/16 03:32 37.0 101 16 161/91 (114) 90 Room Air 12/05/16 23:15 Room Air 12/05/16 23:05 37.1 89 18 153/89 (110) 92 Room Air 12/05/16 19:19 37.0 97 18 153/88 (109) 92 Room Air 12/05/16 16:56 162/90 (114) 12/05/16 16:18 164/90 (114) 12/05/16 15:15 Nasal Cannula 2.0 12/05/16 15:01 36.8 89 18 174/109 (130) 95 Nasal Cannula 2.0 12/05/16 13:58 90 Room Air 12/05/16 13:58 Nasal Cannula 2.0 12/05/16 11:45 Nasal Cannula 2.0 12/05/16 11:37 37.1 91 19 156/83 (107) 90 Room Air 12/05/16 10:38 Room Air (Antonieta Temple PA-C) Physical Exam General Appearance: WD/WN, + mild distress, + pertinent finding (appears brighter today compared to yesterday) Eyes: PERRL, EOMI ENT: hearing grossly normal, pharynx normal Neck: supple, no JVD Respiratory/Chest: lungs clear, no accessory muscle use Cardiovascular: + tachycardia Abdomen: + pertinent finding (hypoactive bowel sounds, abdominal dressing is C/ D/I, ostomy in LLQ draining slightly pink fluid, + appropriately tender to palpation, mildly distended.) Extremities: non-tender, no pedal edema, no calf tenderness Neurologic/Psychiatric: alert, oriented x 3 Skin: normal color, warm/dry (Antonieta Temple PA-C) Laboratory Results Last 24 Hours Test 12/05/16 09:03 12/05/16 10:14 12/05/16 10:17 Sodium Level 143 mmol/L Potassium Level 3.8 mmol/L Chloride Level 109 mmol/L Carbon Dioxide Level 29 mmol/L Anion Gap 5.0 mmol/L Blood Urea Nitrogen 5 mg/dl Creatinine 0.47 mg/dl Est Creatinine Clear Calc Drug Dose 107.4 ml/min Estimated GFR () 120.1 Estimated GFR (Non- 103.7 BUN/Creatinine Ratio 11.0 Random Glucose 131 mg/dl Calcium Level 8.4 mg/dl Total Bilirubin 0.4 mg/dl Aspartate Amino Transf (AST/SGOT) 15 U/L Alanine Aminotransferase (ALT/SGPT) 75 U/L Alkaline Phosphatase 95 U/L Total Protein 5.8 gm/dl Albumin 2.4 gm/dl Globulin 3.4 gm/dl Albumin/Globulin Ratio 0.7 White Blood Count 8.43 K/uL Red Blood Count 4.25 M/uL Hemoglobin 12.4 g/dL Hematocrit 36.0 % Mean Corpuscular Volume 84.7 fL Mean Corpuscular Hemoglobin 29.2 pg Mean Corpuscular Hemoglobin Concent 34.4 g/dl Platelet Count 233 K/uL Mean Platelet Volume 9.2 fL Neutrophils (%) (Auto) 83.5 % Lymphocytes (%) (Auto) 7.5 % Monocytes (%) (Auto) 8.8 % Eosinophils (%) (Auto) 0.0 % Basophils (%) (Auto) 0.0 % Neutrophils # (Auto) 7.04 K/uL Lymphocytes # (Auto) 0.63 K/uL Monocytes # (Auto) 0.74 K/uL Eosinophils # (Auto) 0.00 K/uL Basophils # (Auto) 0.00 K/uL RDW Standard Deviation 43.8 fL RDW Coefficient of Variation 14.1 % Immature Granulocyte % (Auto) 0.2 % Immature Granulocyte # (Auto) 0.02 K/uL Prothrombin Time 11.4 SECONDS Prothromb Time International Ratio 1.1 (Antonieta Temple, PAEve) Assessment and Plan 66-year-old F withPMHx of hypertension, dyslipidemia, asthma, NAMITA, hypothyroidism, GERD, breast cancer, and diverticulosis, ecoli, who was admitted acutely for acute diverticulitis with perforation and abscess formation. Acute diverticulitis with micro perforation/ abscess formation - Admitted under general surgery team - POD #2 s/p exploratory laparotomy with Todd's procedure by Dr. Ford - continue abx with cipro and flagyl - Analgesia per primary team - dilaudid director semiconductor for now. Attempt to convert to oral medications and transition off FISHER EEL. - Diet advanced to clears today per gen surg - Antiemetics on board prn - Follow cbc, initially presented with leukocytosis and is trending downward. - Ostomy draining pink fluid this morning E. Coli UTI - Sensitivity resistant to multiple abx with cipro included. So will add on cefdinir 300 mg PO Q12H. - Frankel catheter should come out shaunna when able to ambulate to the bathroom/ bedside commode. HTN - Increased amlodipine from 2.5 mg to 5 mg daily with BPs still in the 160s, triamterene/hctz 37.2/25 mg daily - Hydralazine IV prn Asthma - Continue symbicort - Incentive spirometry encouraged at bedside Depression/ NAMITA - Cont Lexapro 10 mg daily Hypothyroidism - Cont levothyroxine 112 mcg daily DVT ppx: teds, scds, lovenox Disposition: From home, lives with , discharge per primary team (Antonieta Temple, MARIANA) AFSHAN Physician Supervision Note: I interviewed and examined the patient. Discussed with Antonieta Temple PAC and agree with findings and plan as documented in the note. Any exceptions or clarifications are listed here: None Patient has persistent abdominal pain and nausea it's unclear whether the FISHER EEL is causing her nausea we are attempting to try oral pain medications to see if that is the case surgery continues to manage her diet advancement and overall case Vitals are stable with exception of hypertension medications will continue to be adjusted and when necessary hydralazine will be offered Her abdomen is with hypoactive bowel sounds diffusely mildly tender Persistent postop ileus status post bowel resection with pain control nausea and hypertension being active issues Documented By: Ayad Jacobs (Ayad Jacobs M.D.)
[2016-12-06] MEDS: CIPROFLOXACIN / D5W 400 MG in PREMIXED IN D5W 200 ML IV SCH ×2 (09:03→20:53)
[2016-12-06] MEDS: AMLODIPINE BESYLATE 5 MG TAB PO SCH (09:08)
[2016-12-06] MEDS: CEFDINIR 300 MG CAP PO SCH ×2 (09:09→20:53)
[2016-12-06] MEDS: ESCITALOPRAM OXALATE 10 MG TAB PO SCH (09:09)
[2016-12-06] MEDS: TRIAMTERENE/HCTZ 37.5/25MG CAP PO SCH (09:10)
[2016-12-06] MEDS: ENOXAPARIN 40 MG/0.4 ML SYR SQ SCH (09:13)
[2016-12-06 10:21] LABS: HEMATOCRIT 35.1 % (37-47); MEAN CELL VOLUME 85.4 fL (80-100); MEAN CORPUSCULAR HEMOGLOBIN 28.5 pg (25-34); MEAN CORPUSCULAR HGB CONC 33.3 g/dl (32-36); MEAN PLATELET VOLUME 8.8 fL (7.4-10.4); PLATELET COUNT 250 K/uL (130-400); RED BLOOD COUNT 4.11 M/uL (4.2-5.4); WHITE BLOOD COUNT 10.34 K/uL (4.8-10.8)
[2016-12-06 10:42] LABS: CALCIUM 8.8 mg/dl (8.5-10.1); CREATININE 0.44 mg/dl (0.60-1.20)
[2016-12-06] MEDS: PANTOprazole INJ 40 MG in SYRINGE 0 ML IV SCH (11:04)
[2016-12-06 11:41] VITALS: BP 164/94; PULSE 108; TEMP 36.8; O2SAT 96
[2016-12-06] MEDS: POTASSIUM CHLR 10 MEQ / WTR 10 MEQ in PREMIXED WATER 100 ML IV SCH ×4 (13:07→17:52)
[2016-12-06 15:01] VITALS: BP 155/92; PULSE 89; TEMP 37.3; O2SAT 92
[2016-12-06 23:05] VITALS: BP 148/84; PULSE 108; TEMP 37; O2SAT 90
[2016-12-07] VITALS (7 sets, daily range): BP systolic 139–173; BP diastolic 88–104; PULSE 87–111; TEMP 36.6–37.4; O2SAT 90–94
[2016-12-07] MEDS: D5NSS + 20MEQ KCL 1,000 ML IV SCH ×2 (03:55→16:14)
[2016-12-07] MEDS: METRONIDAZOLE / NSS 500 MG in PREMIXED NSS 100 ML IV SCH (05:10)
[2016-12-07] MEDS: LEVOTHYROXINE 112 MCG TAB PO SCH (05:10)
--- NOTE | 2016-12-07 06:55 | Surgery Progress Note ---
Surgery Progress Note Date of Service Dec 07, 2016. Subjective Patient examined at bedside this morning. Afebrile, mildly tachycardic - otherwise vitals stable overnight on room air, no acute events overnight. Pain is well controlled with current regimen. Tolerating sips of clear liquids without N/V. Has not been out of bed / ambulated much - discussed with patient that this needs to happen today; she is agreeable. Frankel remains in place and functioning - also discussed with patient this needs to come out today. Colostomy edematous, pink; bowel sweat only in colostomy bag. Objective Vital Signs: Date Time Temp Pulse Resp B/P (MAP) Pulse Ox O2 Delivery O2 Flow Rate FiO2 12/07/16 03:53 37.2 109 16 149/88 (108) 92 Room Air 12/06/16 23:28 Room Air 12/06/16 23:05 37.0 108 16 148/84 (105) 90 Room Air 12/06/16 16:00 Room Air 12/06/16 15:01 37.3 89 155/92 (113) 92 Room Air 12/06/16 11:41 36.8 108 16 164/94 (117) 96 Room Air 12/06/16 08:27 37.1 94 14 154/93 (113) 94 Room Air 12/06/16 08:26 94 Room Air 12/06/16 07:40 Room Air General Appearance: WD/WN, no apparent distress Head: normocephalic Neck: supple Respiratory/Chest: lungs clear, normal breath sounds, no respiratory distress Cardiovascular: regular rate, rhythm Abdomen: non tender, non distended, soft (no rebound / guarding) Incision(s): clean, dry, intact Laboratory Results: Results Past 24 Hours Test 12/06/16 09:58 12/06/16 20:24 12/07/16 04:44 Range/Units White Blood Count 10.34 4.8-10.8 K/uL Red Blood Count 4.11 4.2-5.4 M/uL Hemoglobin 11.7 12.0-16.0 g/dL Hematocrit 35.1 37-47 % Mean Corpuscular Volume 85.4 80-100 fL Mean Corpuscular Hemoglobin 28.5 25-34 pg Mean Corpuscular Hemoglobin Concent 33.3 32-36 g/dl RDW Standard Deviation 43.0 36.4-46.3 fL RDW Coefficient of Variation 13.8 11.5-14.5 % Platelet Count 250 130-400 K/uL Mean Platelet Volume 8.8 7.4-10.4 fL Sodium Level 140 136-145 mmol/L Potassium Level 3.0 3.6 3.5-5.1 mmol/L Chloride Level 105 98-107 mmol/L Carbon Dioxide Level 32 21-32 mmol/L Anion Gap 3.0 3-11 mmol/L Blood Urea Nitrogen 3 7-18 mg/dl Creatinine 0.44 0.60-1.20 mg/dl Est Creatinine Clear Calc Drug Dose 114.7 ml/min Estimated GFR () 122.8 Estimated GFR (Non- 105.9 BUN/Creatinine Ratio 7.0 10-20 Random Glucose 129 70-99 mg/dl Calcium Level 8.8 8.5-10.1 mg/dl Assessment & Plan Nohemi Vasquez is a 66 year old woman admitted with severe diverticulitis with micro perforation who is now POD 3 s/p exploratory laparotomy with Todd's procedure. There were no complications, patient tolerated the procedure well. 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 - work on transitioning to PO medications and discontinuing TRANSPORTATION MAINTENANCE OPERATOR -Diet: Clear liquids as tolerated until colostomy starts functioning -IVF: Continue fluids at 75ml/hr until PO intake is adequate -Follow up labs, AM labs still pending -Discontinue frankel today -DVT ppx with lovenox 40mg daily -Continue IV cipro / flagyl -Appreciate Medicine team recommendations -Continue FOOT ORTHOPEDIST medications -Patient needs to ambulate today -Will change abdominal wound dressings later today -Will need ostomy care teaching for management of ostomy at home (sometime prior to discharge) Latrice Ford MD 12/07/16
[2016-12-07] MEDS: HYDROmorphone HCL 0.5MG/ML 50 ML CASSETTE IV PRN ×3 (07:08→22:49)
[2016-12-07 07:25] LABS: HEMATOCRIT 39.3 % (37-47); MEAN CELL VOLUME 84.7 fL (80-100); MEAN CORPUSCULAR HEMOGLOBIN 27.4 pg (25-34); MEAN CORPUSCULAR HGB CONC 32.3 g/dl (32-36); PLATELET COUNT 267 K/uL (130-400); RED BLOOD COUNT 4.64 M/uL (4.2-5.4); WHITE BLOOD COUNT 12.64 K/uL (4.8-10.8)
[2016-12-07 07:59] LABS: BUN/CREATININE RATIO 7.5 (10-20); CREATININE 0.36 mg/dl (0.60-1.20)
[2016-12-07] MEDS: ONDANSETRON INJ 2 MG/ML 2 ML VIAL IV PRN (08:32)
[2016-12-07] MEDS: ENOXAPARIN 40 MG/0.4 ML SYR SQ SCH (08:33)
[2016-12-07] MEDS: CEFDINIR 300 MG CAP PO SCH (08:33)
[2016-12-07] MEDS: AMLODIPINE BESYLATE 5 MG TAB PO SCH (08:33)
[2016-12-07] MEDS: CIPROFLOXACIN / D5W 400 MG in PREMIXED IN D5W 200 ML IV SCH (08:33)
[2016-12-07] MEDS: ESCITALOPRAM OXALATE 10 MG TAB PO SCH (08:34)
[2016-12-07] MEDS: TRIAMTERENE/HCTZ 37.5/25MG CAP PO SCH (08:34)
--- NOTE | 2016-12-07 10:45 | Medical Consult ---
Consultation Date of Consultation: Dec 07, 2016. Attending Physician: Latrice Ford M.D. Reason for Consultation: Clostridium perfringens in culture History of Present Illness 66-year-old female with history of hypertension, hyperlipidemia, and asthma, who was admitted to the hospital with several days of progressively worsening abdominal pain and diarrhea, and was found on CT scanning in the emergency department to have evidence of diverticulitis with micro perforation. She has undergone laparotomy with resection and ostomy placement. Operative cultures now growing Clostridium and strep. Urine culture growing a relatively resistant E coli. Currently being treated with combination of ciprofloxacin and metronidazole. Still with significant abdominal pain, no fever. Had some urinary complaints with dysuria prior to admission. Denies flank pain. Past Medical/Surgical History Medical Problems: (1) Bowel perforation Status: Acute (2) Intestinal diverticular abscess Status: Acute (3) UTI (urinary tract infection) Status: Acute Medical Problems: (1) Asthma (2) Breast cancer (3) Diverticulitis (4) Hypertension (5) Thyroid disease Surgical Problems: (1) H/O bilateral mastectomy (2) H/O: hysterectomy (3) History of appendectomy (4) History of tonsillectomy (5) S/p bilateral shoulder joint replacement (6) S/P cholecystectomy (7) Status post right hip replacement Family History Bladder cancer Breast cancer Diabetes mellitus Hyperlipidemia Hypertension Kidney disease Kidney stones Lung disease Myocardial infarction Social History Smoking Status: Former Smoker (quit around 2002) Smokeless Tobacco Use: No Alcohol Use: none Drug Use: none Marital Status: Housing Status: lives with significant other Occupation Status: employed Allergies Coded Allergies: No Known Allergies (Verified , 12/02/16) Current Inpatient Medications Current Inpatient Medications Medications (Trade) Dose Ordered Sig/Adriana Route Start Time Stop Time Status Last Admin Dose Admin Metronidazole 500 mg/Prmx 100 ml @ 100 mls/hr Q8H IV 12/02/16 14:00 12/12/16 13:59 12/07/16 05:10 100 MLS/HR Acetaminophen 100 ml @ 400 mls/hr Q8H PRN IV 12/02/16 12:00 01/01/17 11:59 12/04/16 03:22 400 MLS/HR Ondansetron HCl (Zofran Inj) 4 mg Q4H PRN IV 12/02/16 12:00 01/01/17 11:59 12/07/16 08:32 4 MG Pantoprazole Sodium 40 mg/ Syringe 10 ml @ 5 mls/min DAILY@11 IV 12/03/16 11:00 01/02/17 10:59 12/06/16 11:04 5 MLS/MIN Potassium Chloride/Dextrose/ Sod Cl 1,000 ml @ 75 mls/hr [id number] IV 12/02/16 13:00 01/01/17 12:59 12/07/16 03:55 100 MLS/HR Budesonide/ Formoterol Fumarate (Symbicort 80/ 4.5 Inh) 2 puffs BID PRN INH 12/03/16 10:00 01/02/17 09:59 12/04/16 11:19 2 PUFFS Escitalopram Oxalate (Lexapro Tab) 10 mg DAILY PO 12/04/16 09:00 01/03/17 08:59 12/07/16 08:34 10 MG Levothyroxine Sodium (Synthroid Tab) 112 mcg DAILYBB PO 12/04/16 06:00 01/03/17 05:59 12/07/16 05:10 112 MCG Triamterene/HCTZ (Dyazide 37.5/25 Mg Cap) 1 cap DAILY PO 12/04/16 09:00 01/03/17 08:59 12/07/16 08:34 1 CAP Hydromorphone HCl (Dilaudid Application Design Engineer) 25 mg PRN PRN IV 12/04/16 19:15 12/18/16 19:14 12/07/16 07:08 25 MG Promethazine HCl 12.5 mg/Sodium Chloride 50.5 ml @ 204 mls/hr Q6 PRN IV 12/04/16 19:30 01/03/17 19:29 12/05/16 15:08 204 MLS/HR Naloxone HCl (Narcan Inj) 0.1 mg Q5M PRN IV 12/04/16 20:45 12/18/16 20:44 Ciprofloxacin/ Dextrose 400 mg/ Prmx 200 ml @ 100 mls/hr Q12H IV 12/04/16 21:00 12/12/16 20:59 12/07/16 08:33 100 MLS/HR Cefdinir (Omnicef Cap) 300 mg Q12 PO 12/05/16 09:00 12/15/16 08:59 12/07/16 08:33 300 MG Tramadol HCl (Ultram Tab) 50 mg Q4H PRN PO 12/05/16 09:30 01/04/17 09:29 12/05/16 12:48 50 MG Enoxaparin Sodium (Lovenox Inj) 40 mg DAILY SQ 12/06/16 09:00 01/05/17 08:59 12/07/16 08:33 40 MG Amlodipine Besylate (Norvasc Tab) 5 mg DAILY PO 12/06/16 09:00 01/03/17 08:59 12/07/16 08:33 5 MG Hydralazine HCl (HydrALAZINE INJ) 10 mg Q4H PRN IV 12/05/16 18:00 01/04/17 17:59 Review of Systems All systems were reviewed and are negative except as per HPI Physical Exam Date Time Temp Pulse Resp B/P (MAP) Pulse Ox O2 Delivery O2 Flow Rate FiO2 12/07/16 07:24 37.4 111 16 160/90 (113) 90 Room Air 12/07/16 03:53 37.2 109 16 149/88 (108) 92 Room Air 12/06/16 23:28 Room Air 12/06/16 23:05 37.0 108 16 148/84 (105) 90 Room Air 12/06/16 16:00 Room Air 12/06/16 15:01 37.3 89 155/92 (113) 92 Room Air 12/06/16 11:41 36.8 108 16 164/94 (117) 96 Room Air General Appearance: WD/WN, no apparent distress Head: normocephalic, atraumatic Eyes: normal inspection, EOMI, sclerae normal ENT: normal ENT inspection, hearing grossly normal, pharynx normal Neck: supple, no adenopathy, thyroid normal, trachea midline Respiratory/Chest: chest non-tender, lungs clear, normal breath sounds, no respiratory distress Cardiovascular: regular rate, rhythm, no gallop, no murmur Abdomen/GI: normal bowel sounds, soft, no organomegaly, + tenderness (Mild diffuse without rebound or guarding), + pertinent finding (Ostomy site appears clean) Back: normal inspection, no CVA tenderness Extremities/Musculoskelatal: no calf tenderness, non-tender Neurologic/Psych: alert, oriented x 3 Skin: normal color, warm/dry, no rash Lymphatic: no adenopathy Laboratory Results RUN DATE: 12/07/16 [facility] PAGE 1 RUN TIME: 1083 Specimen Inquiry PATIENT: KAYLAN SLATER LOC: JamieSIAEL U # : [id number] AGE/SX: 66/F ROOM: [facility] REG : 12/02/[address]: Latrice Ford M.D. : 1950 BED: 2 DIS : STATUS: ADM IN TLOC: SPEC #: [id number] LOUIE: 12/04/16 STATUS: RES REQ #: [id number] RECD: 12/04/[address]: Nadeem Alex D.O. SOURCE: PER FLD ENTR: 12/04/[address]: Zander Taylor M.D. SPDESC: Tanner Lion D.O. ORDERED: AER/JACQUES CULTSMR Procedure Result Verified Site GRAM STAIN Final 12/05/16-849 RESULT MANY POLYS NO ORGANISMS SEEN OR AER/JACQUES CULT Preliminary 12/07/16-742 Organism 1 CLOSTRIDIUM PERFRINGENS QUANITY RARE SENS NO SENSITIVITY TO FOLLOW Organism 2 ALPHA STREP. NOT ENTEROCOCCUS QUANITY RARE SENS NO SENSITIVITY TO FOLLOW RUN DATE: 12/04/16 [facility] PAGE 1 RUN TIME: 1109 Specimen Inquiry PATIENT: KAYLAN SLATER LOC: KONSTANTIN U # : [id number] AGE/SX: 66/F ROOM: [facility] REG : 12/02/[address]: Nadeem Alex D.O : 1950 BED: 2 DIS : STATUS: ADM IN TLOC: SPEC #: [id number] LOUIE: 12/02/16 STATUS: COMP REQ #: [id number] RECD: 12/02/[address] [facility] [address]: Michael Bonds M.D. SOURCE: UR, CC ENTR: 12/02/[address] [facility] [address]: Zander Taylor M.D. SPDES: ORDERED: CULTURE URCLEAN Procedure Result Verified Site URINE CULTURE Final 12/04/16-1109 Organism 1 ESCHERICHIA COLI COLONY COUNT >100,000 CFU/ml SENS SENSITIVITY TO FOLLOW 1. ESCHERICHIA COLI Target Route Dose RX AB Cost M.I.C. IQ ------ ----- ------ -- ------ -------- - ------ TRIMET/SULFA R >38 AMPICILLIN R >16 AMPICILLIN/SUL I 16/8 CEFAZOLIN S <=8 CEFOTAXIME S <=2 CEFTRIAXONE S <=1 CEFEPIME S <=4 CEFUROXIME S 8 IMIPENEM S <=1 GENTAMICIN S <=4 TOBRAMYCIN S <=4 AMIKACIN S <=16 CIPROFLOXACIN R >2 LEVOFLOXACIN R >4 ERTAPENEM S <=1 NITROFURANTOIN S <=32 PIP/TAZO S <=16 S = SENSITIVE I = INTERMEDIATE R = RESISTANT END OF REPORT Last 24 Hours Test 12/06/16 20:24 12/07/16 06:51 Potassium Level 3.6 mmol/L 3.0 mmol/L White Blood Count 12.64 K/uL Red Blood Count 4.64 M/uL Hemoglobin 12.7 g/dL Hematocrit 39.3 % Mean Corpuscular Volume 84.7 fL Mean Corpuscular Hemoglobin 27.4 pg Mean Corpuscular Hemoglobin Concent 32.3 g/dl RDW Standard Deviation 42.7 fL RDW Coefficient of Variation 13.7 % Platelet Count 267 K/uL Mean Platelet Volume 9.0 fL Sodium Level 139 mmol/L Chloride Level 102 mmol/L Carbon Dioxide Level 31 mmol/L Anion Gap 6.0 mmol/L Blood Urea Nitrogen 3 mg/dl Creatinine 0.36 mg/dl Est Creatinine Clear Calc Drug Dose 140.2 ml/min Estimated GFR () 131.2 Estimated GFR (Non- 113.2 BUN/Creatinine Ratio 7.5 Random Glucose 114 mg/dl Calcium Level 9.0 mg/dl [~ rep ct add3]] ABD/PELVIS IV AND ORAL CONT HISTORY: 66 years-old Female ABDOMINAL PAIN/GI--?DIVERTICULITIS--GIVE PO AND IV CONTRAST acute diffuse lower abdominal pain COMPARISON: None available TECHNIQUE: Multiple axial CT images of the abdomen and pelvis were obtained following the administration of both oral and IV contrast. 95 mL Optiray 320 IV contrast was administered. A dose lowering technique was used consistent with the principals of SANTANA. FINDINGS: The imaged lung bases are generally clear. The imaged inferior cardiac chambers are unremarkable. Coronary arterial calcifications are noted. Prior cholecystectomy. Mild intrahepatic and extrahepatic biliary ductal dilation is likely secondary to postcholecystectomy state with common bile duct measuring up to 12 mm transversely. There is a nonspecific 1.5 x 1.9 cm low attenuating lesion of the subserosal anterior spleen. There is moderate pancreatic atrophy. Adrenal glands are within normal limits. Bilateral kidneys and ureters are within normal limits. Limited evaluation of the pelvic structures secondary to bilateral hip arthroplasty pelvic hardware. Urinary bladder appears demonstrate mildly thickened wall anteriorly which is nonspecific. The uterus is not well seen and may be surgically absent. There is mild atherosclerotic plaquing of the abdominal aorta. No bulky retroperitoneal adenopathy. Moderate-sized duodenal diverticulum is noted. No bowel obstruction. There is circumferential wall thickening involving several loops of sigmoid colon. Innumerable sigmoid colonic diverticula are noted with mild degree of inflammatory changes seen in the region of the mid sigmoid colon. Scattered foci of extraperitoneal air noted within the pelvis compatible with perforation. There is a mixed attenuating collection containing central foci of air and debris in the region of the mid sigmoid colon on image 308, 2.2 x 3.4 x 2.3 cm which does not contain oral contrast, suspicious for intramural abscess. Soft tissues are within normal limits. The bones are mildly demineralized. Grade 1 anterolisthesis of L4 on L5 appears be secondary to severe facet arthropathy. Multilevel advanced discogenic degenerative changes are noted. Without IMPRESSION: 1. Findings compatible with acute complicated sigmoid diverticulitis. Pneumoperitoneum of the lower pelvis is compatible with associated perforation. Additionally, there is a probable intramural abscess involving the mid sigmoid colon measuring up to 3.4 cm. 2. No bowel obstruction. 3. Additional incidental findings as above. The above report was generated using voice recognition software. It may contain grammatical, syntax or spelling errors. Electronically signed by: Rashad Jaramillo M.D. 12/02/2016 10:52 AM Dictated Date/Time: 12/02/2016 10:41 AM Assessment & Plan 66-year-old female with diverticulitis with perforation, with operative cultures growing Clostridium and strep. Also with evidence urinary tract infection with resistant E coli. Current regimen will not adequately cover all isolated pathogens, and so I am will change patient to IV ertapenem 1 g daily with length of therapy likely in the range of 7 days depending on clinical response. Will follow.
[2016-12-07] MEDS: PANTOprazole INJ 40 MG in SYRINGE 0 ML IV SCH (11:45)
[2016-12-07] MEDS ORDERED: POTASSIUM CHLORIDE 20 MEQ TABCR PO ONE (12:30)
[2016-12-07] MEDS: ERTAPENEM IV 1 GM in SODIUM CHLOR 0.9% AD-VAN 50ML 50 ML IV SCH (14:10)
[2016-12-07] MEDS: PROMETHAZINE HCL INJ 12.5 MG in SODIUM CHLORIDE 0.9% 50ML 50 ML IV PRN (14:10)
--- NOTE | 2016-12-07 17:18 | Progress Note ---
Subjective Date of Service: Dec 07, 2016. 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 and it 's unclear whether this is causing her affect with regard to her nausea and decreased by mouth intake we will attempt to pursue persistent use of oral pain control wound care is addressing her ostomy site currently Problem List Medical Problems: (1) Bowel perforation Status: Acute (2) Intestinal diverticular abscess Status: Acute (3) UTI (urinary tract infection) Status: Acute Review of Systems Constitutional: + weakness, + fatigue, No fever, No chills Respiratory: + dyspnea on exertion, No cough, No shortness of breath Cardiac: No edema Abdomen: + pain, + nausea, No vomiting, No diarrhea, No constipation Musculoskeletal: No muscle pain Psychiatric: No depression symptoms, No anhedonism Objective Vital Signs Date Time Temp Pulse Resp B/P (MAP) Pulse Ox O2 Delivery O2 Flow Rate FiO2 12/07/16 16:00 Nasal Cannula 3.0 12/07/16 15:50 153/94 (113) 12/07/16 15:00 36.6 87 20 173/102 (125) 92 Nasal Cannula 3.0 12/07/16 07:30 Room Air 12/07/16 07:24 37.4 111 16 160/90 (113) 90 Room Air 12/07/16 03:53 37.2 109 16 149/88 (108) 92 Room Air 12/06/16 23:28 Room Air 12/06/16 23:05 37.0 108 16 148/84 (105) 90 Room Air Physical Exam General Appearance: WD/WN, + moderate distress Neck: supple, no JVD Respiratory/Chest: chest non-tender, no respiratory distress, + decreased breath sounds Cardiovascular: regular rate, rhythm, no murmur Abdomen: normal bowel sounds, soft, + guarding, + tenderness (mildly generalized tenderness) Extremities: no pedal edema, no calf tenderness Laboratory Results Last 24 Hours Test 12/06/16 20:24 12/07/16 06:51 Potassium Level 3.6 mmol/L 3.0 mmol/L White Blood Count 12.64 K/uL Red Blood Count 4.64 M/uL Hemoglobin 12.7 g/dL Hematocrit 39.3 % Mean Corpuscular Volume 84.7 fL Mean Corpuscular Hemoglobin 27.4 pg Mean Corpuscular Hemoglobin Concent 32.3 g/dl RDW Standard Deviation 42.7 fL RDW Coefficient of Variation 13.7 % Platelet Count 267 K/uL Mean Platelet Volume 9.0 fL Sodium Level 139 mmol/L Chloride Level 102 mmol/L Carbon Dioxide Level 31 mmol/L Anion Gap 6.0 mmol/L Blood Urea Nitrogen 3 mg/dl Creatinine 0.36 mg/dl Est Creatinine Clear Calc Drug Dose 140.2 ml/min Estimated GFR () 131.2 Estimated GFR (Non- 113.2 BUN/Creatinine Ratio 7.5 Random Glucose 114 mg/dl Calcium Level 9.0 mg/dl Assessment and Plan 66-year-old F admitted with perforated diverticulitis and abscess status post colonic resection and colostomy and drainage of intraperitoneal fluid also with PMHx of hypertension, dyslipidemia, asthma, NAMITA, hypothyroidism, GERD, breast cancer Acute diverticulitis with micro perforation/ abscess formation - s/p exploratory laparotomy with Todd's procedure by Dr. Ford Infectious disease will see the patient has she's had poly-lester in her abdominal wound and urine hopeful to streamline antibiotics - Diet advanced to clears and further evaluated per gen surg - Ostomy draining pink fluid in scant amounts E. Coli UTI plus positive wound culture during procedure of C perfringens and alpha strep changed to ertapenem by infectious disease HTN Increased amlodipine 5 mg daily , triamterene/hctz 37.2/25 mg daily - Hydralazine IV prn Asthma has been stable on symbicort Depression/ NAMITA has a flat affect although on Lexapro 10 mg daily Hypothyroidism clinically appears stable on levothyroxine 112 mcg daily DVT ppx: teds, scds, lovenox
[2016-12-08 03:43] VITALS: BP 151/88; PULSE 105; TEMP 36.7; TEMP 37.1; O2SAT 92
[2016-12-08] MEDS: LEVOTHYROXINE 112 MCG TAB PO SCH (05:20)
[2016-12-08] MEDS: D5NSS + 20MEQ KCL 1,000 ML IV SCH (05:20)
[2016-12-08] MEDS: HYDROmorphone HCL 0.5MG/ML 50 ML CASSETTE IV PRN (06:58)
[2016-12-08 07:33] VITALS: BP 143/87; PULSE 90; TEMP 37.2; O2SAT 92
--- NOTE | 2016-12-08 08:21 | Surgery Progress Note ---
Surgery Progress Note Date of Service Dec 08, 2016. Subjective Patient examined at bedside this morning. Afebrile, vitals stable on room air, no acute events overnight. 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 Tolerating clear liquids without N/V, appetite still low. Ostomy now functioning, appliance leaking. Out of bed to chair several times yesterday. Ambulating to bathroom and voiding without difficulty. Objective Vital Signs: Date Time Temp Pulse Resp B/P (MAP) Pulse Ox O2 Delivery O2 Flow Rate FiO2 12/08/16 07:33 37.2 90 17 143/87 (105) 92 Room Air 12/08/16 03:43 37.1 105 16 151/88 (109) 92 Room Air 12/07/16 23:55 Room Air 12/07/16 23:20 37.1 90 16 143/88 (106) 94 Room Air 12/07/16 19:26 98 139/89 (106) 12/07/16 19:00 97 18 171/104 (126) 92 Room Air 12/07/16 16:00 Nasal Cannula 3.0 12/07/16 15:50 153/94 (113) 12/07/16 15:00 36.6 87 20 173/102 (125) 92 Nasal Cannula 3.0 General Appearance: WD/WN, no apparent distress Head: normocephalic Neck: supple Respiratory/Chest: lungs clear, normal breath sounds, no respiratory distress Cardiovascular: regular rate, rhythm Abdomen: normal bowel sounds, non tender, non distended, + pertinent finding ( colostomy functioning, air and stool in bag; appliance leaking) Incision(s): clean, dry, intact, no erythema, no drainage Extremities: normal range of motion Laboratory Results: Results Past 24 Hours Test 12/08/16 04:44 12/08/16 07:42 Range/Units Assessment & Plan Nohemi Vasquez is a 66 year old woman admitted with severe diverticulitis with micro perforation who is now POD 3 s/p exploratory laparotomy with Todd's procedure. There were no complications, patient tolerated the procedure well. 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: Tramadol; IV tylenol prn. Discontinue CARPET LAYER HELPER today -Diet: Clear liquids today, will likely advance tomorrow; nutritional supplement. -IVF: Discontinue today, UOP adequate -Follow up labs, AM labs still pending -DVT ppx with lovenox 40mg daily -Continue IV cipro / flagyl -Appreciate Medicine team recommendations -Continue NURSE WOUND medications -Encourage ambulation -Will change abdominal wound dressings later today -Will need ostomy care teaching for management of ostomy at home (sometime prior to discharge) Latrice Ford MD 12/08/16
[2016-12-08] MEDS ORDERED: OXYCODONE/ACETAMINOPHEN 5-325 TAB PO PRN ×2 (08:30)
[2016-12-08] MEDS ORDERED: MoRPHine SULFATE 2 MG/ML CARP IV PRN ×2 (08:30)
[2016-12-08] MEDS ORDERED: MoRPHine SULFATE 4 MG/ML 1 ML CARP\\VIAL IV PRN (08:30)
--- NOTE | 2016-12-08 08:40 | Hospitalist Progress Note ---
Hospitalist Progress Note Date of Service Dec 08, 2016. (Antonieta Temple PA-C) Subjective Pt evaluation today including: conversation w/ patient, physical exam, chart review, lab review, review of studies Pain: Mild abdominal pain PO Intake: Fair Voiding: no voiding problems The patient was seen and examined this morning. Pt reports her pain is improving slightly, she is still having mild abdominal pain. Last night the ostomy leaked formed stool. Catheter is out, and she is urinating without pain or burning but states it's quite frequent at this point. She tolerated a sherbert cup for breakfast. Pt has not yet walked with PT/OT, but plans to today. Constitutional: No fever, No chills, No sweats Eyes: No redness, No diplopia ENT: No nasal symptoms, No trouble swallowing Respiratory: No cough, No wheezing, No shortness of breath Cardiovascular: No chest pain, No palpitations Abdomen: + see HPI, No nausea, No vomiting Musculoskeletal: No joint pain, No swelling Female : No dysuria, No hematuria Neurologic: No weakness, No numbness/tingling Endo: No fatigue Skin: No rash, No itch (Antonieta Temple PA-C) Objective Vital Signs Date Time Temp Pulse Resp B/P (MAP) Pulse Ox O2 Delivery O2 Flow Rate FiO2 12/08/16 07:33 37.2 90 17 143/87 (105) 92 Room Air 12/08/16 03:43 37.1 105 16 151/88 (109) 92 Room Air 12/07/16 23:55 Room Air 12/07/16 23:20 37.1 90 16 143/88 (106) 94 Room Air 12/07/16 19:26 98 139/89 (106) 12/07/16 19:00 97 18 171/104 (126) 92 Room Air 12/07/16 16:00 Nasal Cannula 3.0 12/07/16 15:50 153/94 (113) 12/07/16 15:00 36.6 87 20 173/102 (125) 92 Nasal Cannula 3.0 (Antonieta Temple PA-C) Physical Exam General Appearance: WD/WN, no apparent distress Eyes: PERRL, EOMI ENT: hearing grossly normal, pharynx normal Neck: no adenopathy, no JVD Respiratory/Chest: lungs clear, no respiratory distress, no accessory muscle use Cardiovascular: regular rate, rhythm, no murmur Abdomen: + pertinent finding (+ NABS x 4 quad, ostomy bag is empty, abdominal dressing is C/D/I, + appropriately tender to palpation, soft.) Extremities: non-tender, no pedal edema, no calf tenderness Neurologic/Psychiatric: alert, normal mood/affect, oriented x 3 Skin: warm/dry, no rash (Antonieta Temple PA-C) Laboratory Results Last 24 Hours Test 12/08/16 08:23 (Antonieta Temple PA-C) Assessment and Plan 66-year-old F withPMHx of hypertension, dyslipidemia, asthma, NAMITA, hypothyroidism, GERD, breast cancer, and diverticulosis, ecoli, who was admitted acutely for acute diverticulitis with perforation and abscess formation. Acute diverticulitis with micro perforation/ abscess formation - Admitted under general surgery team - POD #4 s/p exploratory laparotomy with Todd's procedure by Dr. Ford - continue abx with cipro and flagyl - Analgesia per primary team -Dilaudid SPIRITS MODEL off. Continue oral medications for analgesia (tramadol and oxycodone) MS IV still available prn if needed for breakthrough pain. - Ostomy with formed stool reported overnight with accidental leak, bag changed prior to my interview so no outs to observe. - Antiemetics on board prn - pt is tolerating a soft food diet without difficulty, continue to advance per primary team - Follow cbc, initially presented with leukocytosis but now resolved E. Coli UTI - Sensitivity resistant to multiple abx with cipro included. So will add on cefdinir 300 mg PO Q12H. - Martinez catheter out 12/07 HTN - Cont Increased amlodipine at 5 mg daily and triamterene/hctz 37.2/25 mg daily , BPs still in the 140s-150s but improved with this adjustment - Hydralazine IV prn Asthma - Continue symbicort - Incentive spirometry encouraged at bedside Depression/ NAMITA - Cont Lexapro 10 mg daily Hypothyroidism - Cont levothyroxine 112 mcg daily DVT ppx: teds, scds, lovenox Disposition: From home, lives with , discharge per primary team (Antonieta Temple, MARIANA) PA Physician Supervision Note: I interviewed and examined the patient. Discussed with Antonieta Temple PAC and agree with findings and plan as documented in the note. Any exceptions or clarifications are listed here: None This patient has improved with discontinuation of Dilaudid SPIRITS MODEL blood pressure still slightly up she is slightly more ambulatory overall gentle improvement towards discharge maintaining antibiotics Documented By: Ayad Jacobs (Ayad Jacobs M.D.)
[2016-12-08 09:22] LABS: BUN/CREATININE RATIO 16.4 (10-20); CALCIUM 9.6 mg/dl (8.5-10.1); CREATININE 0.39 mg/dl (0.60-1.20); POTASSIUM 3.3 mmol/L (3.5-5.1)
[2016-12-08 09:36] LABS: HEMATOCRIT 41.2 % (37-47); MEAN CELL VOLUME 86.4 fL (80-100); MEAN CORPUSCULAR HEMOGLOBIN 28.5 pg (25-34); MEAN PLATELET VOLUME 9.6 fL (7.4-10.4); PLATELET COUNT 260 K/uL (130-400); RED BLOOD COUNT 4.77 M/uL (4.2-5.4); WHITE BLOOD COUNT 9.95 K/uL (4.8-10.8)
[2016-12-08] MEDS: TRIAMTERENE/HCTZ 37.5/25MG CAP PO SCH (10:10)
[2016-12-08] MEDS: ESCITALOPRAM OXALATE 10 MG TAB PO SCH (10:10)
[2016-12-08] MEDS: AMLODIPINE BESYLATE 5 MG TAB PO SCH (10:11)
[2016-12-08] MEDS: ENOXAPARIN 40 MG/0.4 ML SYR SQ SCH (10:11)
[2016-12-08] MEDS: ERTAPENEM IV 1 GM in SODIUM CHLOR 0.9% AD-VAN 50ML 50 ML IV SCH (10:33)
[2016-12-08] MEDS: PANTOprazole SOD 40 MG TAB PO SCH (12:12)
[2016-12-08] MEDS: BOOST BREEZE NUTRITION DRINK 1 BOX PO SCH ×2 (12:13→17:45)
[2016-12-08] MEDS: TRAMADOL HCL 50 MG TAB PO PRN ×2 (12:13→19:24)
[2016-12-08] MEDS ORDERED: POTASSIUM CHLORIDE 20 MEQ TABCR PO ONE (15:15)
[2016-12-08 15:43] VITALS: BP 111/76; PULSE 87; TEMP 37.1; O2SAT 90
[2016-12-08 23:07] VITALS: BP 132/86; PULSE 94; TEMP 37; O2SAT 92
[2016-12-09] MEDS: LEVOTHYROXINE 112 MCG TAB PO SCH (05:10)
[2016-12-09 06:59] VITALS: BP 132/81; PULSE 92; TEMP 36.7; O2SAT 94
[2016-12-09 08:31] LABS: HEMATOCRIT 38.4 % (37-47); MEAN CELL VOLUME 83.7 fL (80-100); MEAN CORPUSCULAR HEMOGLOBIN 29.2 pg (25-34); MEAN CORPUSCULAR HGB CONC 34.9 g/dl (32-36); MEAN PLATELET VOLUME 8.4 fL (7.4-10.4); PLATELET COUNT 309 K/uL (130-400); RED BLOOD COUNT 4.59 M/uL (4.2-5.4); WHITE BLOOD COUNT 12.91 K/uL (4.8-10.8)
[2016-12-09] MEDS: BOOST BREEZE NUTRITION DRINK 1 BOX PO SCH ×3 (08:33→18:11)
[2016-12-09] MEDS: TRAMADOL HCL 50 MG TAB PO PRN ×3 (08:36→19:52)
[2016-12-09] MEDS: ESCITALOPRAM OXALATE 10 MG TAB PO SCH (08:37)
[2016-12-09] MEDS: AMLODIPINE BESYLATE 5 MG TAB PO SCH (08:37)
[2016-12-09] MEDS: PANTOprazole SOD 40 MG TAB PO SCH (08:38)
[2016-12-09] MEDS: TRIAMTERENE/HCTZ 37.5/25MG CAP PO SCH (08:38)
--- NOTE | 2016-12-09 08:44 | Hospitalist Progress Note ---
Hospitalist Progress Note Date of Service Dec 09, 2016. (Antonieta Temple PA-C) Subjective Pt evaluation today including: conversation w/ patient, conversation w/ family , physical exam, chart review, lab review, review of studies Pain: Mild abdominal pain PO Intake: Improving Voiding: no voiding problems The patient was seen and examined this morning. Pt reports feeling pretty well today. She denies acute abdominal pain. Ostomy is functioning well and her diet has been advanced for lunch. PT/OT worked with her earlier this morning and she walked the lap without difficulty. Constitutional: No fever, No chills, No sweats Eyes: No diplopia ENT: No hearing loss, No nasal symptoms Respiratory: No cough, No sputum, No wheezing, No shortness of breath Cardiovascular: No chest pain, No palpitations Abdomen: + pain (Minimal, improving daily), No nausea, No vomiting, No diarrhea, No constipation Musculoskeletal: No joint pain, No muscle pain Female : No dysuria Neurologic: No weakness, No numbness/tingling Skin: No rash, No itch (Antonieta Temple PA-C) Objective Vital Signs Date Time Temp Pulse Resp B/P (MAP) Pulse Ox O2 Delivery O2 Flow Rate FiO2 12/09/16 06:59 36.7 92 18 132/81 (98) 94 Room Air 12/08/16 23:17 Room Air 12/08/16 23:07 37.0 94 16 132/86 (101) 92 Room Air 12/08/16 16:45 Room Air 12/08/16 15:43 37.1 87 18 111/76 (88) 90 Room Air (Antonieta Temple PA-C) Physical Exam General Appearance: WD/WN, no apparent distress Eyes: PERRL, EOMI ENT: hearing grossly normal, pharynx normal Neck: supple, no JVD Respiratory/Chest: lungs clear, no respiratory distress, no accessory muscle use Cardiovascular: regular rate, rhythm, no murmur Abdomen: soft, + pertinent finding (NABS x 4, Abdominal dressing C/D/I, ostomy functioning with brown outs, minimally tender to palpation. ) Extremities: non-tender, no pedal edema, no calf tenderness Neurologic/Psychiatric: alert, normal mood/affect, oriented x 3 Skin: normal color, warm/dry (Antonieta Temple PA-C) Laboratory Results Last 24 Hours Test 12/09/16 08:14 White Blood Count 12.91 K/uL Red Blood Count 4.59 M/uL Hemoglobin 13.4 g/dL Hematocrit 38.4 % Mean Corpuscular Volume 83.7 fL Mean Corpuscular Hemoglobin 29.2 pg Mean Corpuscular Hemoglobin Concent 34.9 g/dl RDW Standard Deviation 43.6 fL RDW Coefficient of Variation 14.2 % Platelet Count 309 K/uL Mean Platelet Volume 8.4 fL (Antonieta Temple PA-C) Assessment and Plan 66-year-old F withPMHx of hypertension, dyslipidemia, asthma, NAMITA, hypothyroidism, GERD, breast cancer, and diverticulosis, ecoli, who was admitted acutely for acute diverticulitis with perforation and abscess formation. Acute diverticulitis with micro perforation/ abscess formation - Admitted under general surgery team - POD #5 s/p exploratory laparotomy with Todd's procedure by Dr. Ford - continue abx with cipro and flagyl per primary team - Analgesia per primary team -Dilaudid STAPLER HAND off. Continue oral medications for analgesia (tramadol and oxycodone) MS IV still available prn if needed for breakthrough pain. - Ostomy with formed stool reported overnight with accidental leak, bag changed prior to my interview so no outs to observe. - Antiemetics on board prn - pt is tolerating a soft food diet without difficulty, continue to advance per primary team - Follow cbc, initially presented with leukocytosis but now resolved E. Coli UTI - Sensitivity resistant to multiple abx with cipro included. - ID on board - Changed antibiotic to IV ertapenum x 7 days, day #2 today. - pt should have ID follow up upon discharge if IV course not completed here in the hospital. - Martinez catheter out 12/07 HTN - Cont Increased amlodipine at 5 mg daily and triamterene/hctz 37.2/25 mg daily , BPs in the 130s overnight, trending down from 160s over the past 3 days. - Hydralazine IV prn Asthma - Continue symbicort - Incentive spirometry encouraged at bedside Depression/ NAMITA - Cont Lexapro 10 mg daily Hypothyroidism - Cont levothyroxine 112 mcg daily DVT ppx: teds, scds, lovenox Disposition: From home, lives with , discharge per primary team At this time medical service will sign off. Thank you for involving us in this consultation. Do not hesitate to re-consult if needed. (Antonieta Temple, MARIANA) PA Physician Supervision Note: I interviewed and examined the patient. Discussed with Antonieta Temple PAC and agree with findings and plan as documented in the note. Any exceptions or clarifications are listed here: None Patient has done well with this progressed slowly due to her polymicrobial infection infectious diseases recommended 7 days of ertapenem and will recommend completing course even if discharged prior to 7 days Vitals are stable Abdomen is slow slightly tender but soft ostomy is functioning well As per ID recommendations continue ertapenem to complete 7 day total care this should cover both urine and wound Medical team will sign off this point Documented By: Ayad Jacobs (Ayad Jacobs M.D.)
[2016-12-09 08:58] LABS: BUN/CREATININE RATIO 20.5 (10-20); CALCIUM 9.7 mg/dl (8.5-10.1); CREATININE 0.4 mg/dl (0.60-1.20); POTASSIUM 3.3 mmol/L (3.5-5.1)
--- NOTE | 2016-12-09 09:25 | Surgery Progress Note ---
Surgery Progress Note Date of Service Dec 09, 2016. Subjective Patient examined at bedside this morning. Afebrile, vitals stable overnight on room air, no acute events. Denies pain this morning, well controlled with tramadol. Tolerating clear liquids without N/V, would like to try more food. Ostomy is functioning, has not had ostomy management teaching yet. Ambulating and voiding without difficulty. No complaints this morning. Objective Vital Signs: Date Time Temp Pulse Resp B/P (MAP) Pulse Ox O2 Delivery O2 Flow Rate FiO2 12/09/16 06:59 36.7 92 18 132/81 (98) 94 Room Air 12/08/16 23:17 Room Air 12/08/16 23:07 37.0 94 16 132/86 (101) 92 Room Air 12/08/16 16:45 Room Air 12/08/16 15:43 37.1 87 18 111/76 (88) 90 Room Air General Appearance: WD/WN, no apparent distress Head: normocephalic Neck: supple Respiratory/Chest: lungs clear, normal breath sounds Cardiovascular: regular rate, rhythm Abdomen: non tender, non distended, soft (no rebound / guarding), + pertinent finding (Ostomy pink, less edematous; air and stool in ostomy bag, appliance intact without leaks.) Incision(s): clean, dry, intact (packing removed, no drainage appreciated) Laboratory Results: Results Past 24 Hours Test 12/09/16 08:14 Range/Units White Blood Count 12.91 4.8-10.8 K/uL Red Blood Count 4.59 4.2-5.4 M/uL Hemoglobin 13.4 12.0-16.0 g/dL Hematocrit 38.4 37-47 % Mean Corpuscular Volume 83.7 80-100 fL Mean Corpuscular Hemoglobin 29.2 25-34 pg Mean Corpuscular Hemoglobin Concent 34.9 32-36 g/dl RDW Standard Deviation 43.6 36.4-46.3 fL RDW Coefficient of Variation 14.2 11.5-14.5 % Platelet Count 309 130-400 K/uL Mean Platelet Volume 8.4 7.4-10.4 fL Sodium Level 138 136-145 mmol/L Potassium Level 3.3 3.5-5.1 mmol/L Chloride Level 103 98-107 mmol/L Carbon Dioxide Level 27 21-32 mmol/L Anion Gap 8.0 3-11 mmol/L Blood Urea Nitrogen 8 7-18 mg/dl Creatinine 0.40 0.60-1.20 mg/dl Est Creatinine Clear Calc Drug Dose 126.2 ml/min Estimated GFR () 126.7 Estimated GFR (Non- 109.3 BUN/Creatinine Ratio 20.5 10-20 Random Glucose 90 70-99 mg/dl Calcium Level 9.7 8.5-10.1 mg/dl Assessment & Plan Nohemi Vasquez is a 66 year old woman admitted with severe diverticulitis with micro perforation who is now POD 5 s/p exploratory laparotomy with Todd's procedure. There were no complications, patient tolerated the procedure well. Also found to have a UTI positive for E coli; ID following for assistance with antibiotic management. 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: Tramadol as needed, pain is well controlled -Diet: Regular diet with nutritional supplements -IVF: Discontinued, UOP adequate -Leukocytosis to 12.9 today; Hgb stable. Potassium repleted. 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 -Will need ostomy care teaching for management of ostomy at home (sometime prior to discharge) -Possible discharge this weekend if tolerating regular diet, pain is controlled , ambulating and voiding without difficulty, and feels comfortable with ostomy management. Will need plan for antibiotics on discharge. Latrice Ford MD 12/09/16
[2016-12-09] MEDS ORDERED: POTASSIUM CHLORIDE 10 MEQ TABCR PO STA (09:27)
[2016-12-09] MEDS: ENOXAPARIN 40 MG/0.4 ML SYR SQ SCH (10:04)
[2016-12-09 12:14] VITALS: O2SAT 94
[2016-12-09 15:03] VITALS: BP 132/81; PULSE 92; O2SAT 94
--- NOTE | 2016-12-09 15:05 | Progress Note ---
Subjective Date of Service: Dec 09, 2016. Subjective pt remains on ertapenem for abd infection and e. coli uti resistant to cipro. tolerating well. d/c planning in place. pt afebrile. wbc mildly elevated today. diet advancing. no overnight events Problem List Medical Problems: (1) Bowel perforation Status: Acute (2) Intestinal diverticular abscess Status: Acute (3) UTI (urinary tract infection) Status: Acute Objective Vital Signs Date Time Temp Pulse Resp B/P (MAP) Pulse Ox O2 Delivery O2 Flow Rate FiO2 12/09/16 12:14 94 Room Air 12/09/16 07:30 Room Air 12/09/16 06:59 36.7 92 18 132/81 (98) 94 Room Air 12/08/16 23:17 Room Air 12/08/16 23:07 37.0 94 16 132/86 (101) 92 Room Air 12/08/16 16:45 Room Air 12/08/16 15:43 37.1 87 18 111/76 (88) 90 Room Air Laboratory Results Item Value Date Time Urine Culture - Final Complete 12/02/16 0818 Urine , Clean Catch Escherichia Coli Gram Stain - Final Complete 12/04/16 1501 Peritoneal Fluid Last 24 Hours Test 12/09/16 08:14 White Blood Count 12.91 K/uL Red Blood Count 4.59 M/uL Hemoglobin 13.4 g/dL Hematocrit 38.4 % Mean Corpuscular Volume 83.7 fL Mean Corpuscular Hemoglobin 29.2 pg Mean Corpuscular Hemoglobin Concent 34.9 g/dl RDW Standard Deviation 43.6 fL RDW Coefficient of Variation 14.2 % Platelet Count 309 K/uL Mean Platelet Volume 8.4 fL Sodium Level 138 mmol/L Potassium Level 3.3 mmol/L Chloride Level 103 mmol/L Carbon Dioxide Level 27 mmol/L Anion Gap 8.0 mmol/L Blood Urea Nitrogen 8 mg/dl Creatinine 0.40 mg/dl Est Creatinine Clear Calc Drug Dose 126.2 ml/min Estimated GFR () 126.7 Estimated GFR (Non- 109.3 BUN/Creatinine Ratio 20.5 Random Glucose 90 mg/dl Calcium Level 9.7 mg/dl Assessment and Plan (1) Diverticulitis Assessment & Plan: pt on day 3/7 ertapenem, tolerating, would continue this for 7 days as previously planned. If pt to be d/c prior to 7 days could continue via picc at home or use [facility] via perph line to complete remaining days. (2) UTI (urinary tract infection)
[2016-12-09 15:57] VITALS: BP 124/84; PULSE 99; TEMP 37.3; O2SAT 91
[2016-12-09] MEDS ORDERED: NRV5 PO (19:01)
[2016-12-09] MEDS: ERTAPENEM IV 1 GM in SODIUM CHLOR 0.9% AD-VAN 50ML 50 ML IV SCH (20:19)
[2016-12-09] MEDS: NYSTATIN SUSP 500,000 U/5 ML UDC PO SCH (21:20)
[2016-12-09 23:00] VITALS: BP 132/81; PULSE 79; TEMP 36.7; O2SAT 92
[2016-12-10] MEDS: LEVOTHYROXINE 112 MCG TAB PO SCH (05:25)
[2016-12-10 07:06] VITALS: BP 135/80; PULSE 90; TEMP 37; O2SAT 92
[2016-12-10 08:11] LABS: HEMATOCRIT 39.7 % (37-47); MEAN CELL VOLUME 84.6 fL (80-100); MEAN CORPUSCULAR HEMOGLOBIN 28.4 pg (25-34); MEAN CORPUSCULAR HGB CONC 33.5 g/dl (32-36); MEAN PLATELET VOLUME 9.2 fL (7.4-10.4); PLATELET COUNT 332 K/uL (130-400); RED BLOOD COUNT 4.69 M/uL (4.2-5.4); WHITE BLOOD COUNT 15.07 K/uL (4.8-10.8)
[2016-12-10] MEDS: BOOST BREEZE NUTRITION DRINK 1 BOX PO SCH ×3 (08:30→17:32)
[2016-12-10 08:41] LABS: BUN/CREATININE RATIO 19.5 (10-20); CALCIUM 9.5 mg/dl (8.5-10.1); CREATININE 0.44 mg/dl (0.60-1.20); POTASSIUM 3.6 mmol/L (3.5-5.1)
[2016-12-10] MEDS ORDERED: POTASSIUM CHLORIDE 10 MEQ TABCR PO ONE (09:15)
--- NOTE | 2016-12-10 09:41 | Surgery Progress Note ---
Surgery Progress Note Date of Service Dec 10, 2016. Subjective Patient examined at bedside this morning. Afebrile, vitals stable on room air overnight, no acute events. Denies pain. Tolerating diet without N/V. Ambulating and voiding without difficulty. Ostomy is functioning. Patient is now nervous about getting a PICC line and does not want it. She is to get another 3 days of IV antibiotic therapy; she does now have a functioning peripheral IV. Objective Vital Signs: Date Time Temp Pulse Resp B/P (MAP) Pulse Ox O2 Delivery O2 Flow Rate FiO2 12/10/16 07:30 Room Air 12/10/16 07:06 37.0 90 18 135/80 (98) 92 Room Air 12/09/16 23:12 Room Air 12/09/16 23:00 36.7 79 16 132/81 (98) 92 Room Air 12/09/16 16:30 Room Air 12/09/16 15:57 37.3 99 16 124/84 (97) 91 Room Air 12/09/16 15:03 92 94 12/09/16 12:14 94 Room Air General Appearance: WD/WN, no apparent distress Head: normocephalic Neck: supple Respiratory/Chest: lungs clear, normal breath sounds Cardiovascular: regular rate, rhythm Abdomen: normal bowel sounds, non tender, non distended, soft (no rebound / guarding), + pertinent finding (Ostomy pink, edema improving, air and stool in bag) Incision(s): clean, dry, intact Laboratory Results: Results Past 24 Hours Test 12/10/16 07:46 Range/Units White Blood Count 15.07 4.8-10.8 K/uL Red Blood Count 4.69 4.2-5.4 M/uL Hemoglobin 13.3 12.0-16.0 g/dL Hematocrit 39.7 37-47 % Mean Corpuscular Volume 84.6 80-100 fL Mean Corpuscular Hemoglobin 28.4 25-34 pg Mean Corpuscular Hemoglobin Concent 33.5 32-36 g/dl RDW Standard Deviation 44.8 36.4-46.3 fL RDW Coefficient of Variation 14.5 11.5-14.5 % Platelet Count 332 130-400 K/uL Mean Platelet Volume 9.2 7.4-10.4 fL Sodium Level 136 136-145 mmol/L Potassium Level 3.6 3.5-5.1 mmol/L Chloride Level 100 98-107 mmol/L Carbon Dioxide Level 27 21-32 mmol/L Anion Gap 9.0 3-11 mmol/L Blood Urea Nitrogen 9 7-18 mg/dl Creatinine 0.44 0.60-1.20 mg/dl Est Creatinine Clear Calc Drug Dose 114.7 ml/min Estimated GFR () 122.8 Estimated GFR (Non- 105.9 BUN/Creatinine Ratio 19.5 10-20 Random Glucose 90 70-99 mg/dl Calcium Level 9.5 8.5-10.1 mg/dl Assessment & Plan Nohemi Vasquez is a 66 year old woman admitted with severe diverticulitis with micro perforation who is now POD 5 s/p exploratory laparotomy with Todd's procedure. There were no complications, patient tolerated the procedure well. Also found to have a UTI positive for E coli; ID following for assistance with antibiotic management. -Tramadol as needed for pain, currently well controlled -Regular diet with nutritional supplements -IVF discontinued, UOP adequate -Leukocytosis to 15 today, but yesterday's abx were delayed due to IV issues; Hgb stable. Potassium repleted. -DVT ppx with lovenox 40mg daily -Continue IV Ertapenem per ID recommendations - day 4/ -Appreciate Medicine team recommendations -Continue BILINGUAL OPERATOR medications -Encourage ambulation -Midline abdominal wound - cover with 4x4 and tape; change as needed. -Will need ostomy care teaching for management of ostomy at home. Needs to be done today. -Discharge planning. Patient would like to wait and receive remaining few days of IV antibiotics while inpatient because she is refusing PICC line. Latrice Ford MD 12/10/16 Update 2:45pm: Patient examined this afternoon. Ostomy management teaching completed, patient feels comfortable with management at home. Possible discharge to home tomorrow if still clinically doing well Antibiotics plan: -If patient is cleared for discharge tomorrow (Tuesday), she is to receive a dose of IV Ertapenem prior to discharge -Patient is to be discharged with peripheral IV in place -She agrees to return to [facility] to [facility] to receive her last two doses, on Tuesday and Tuesday -After final treatment on Tuesday, peripheral IV may be removed Plan reviewed with Senior Sales Consultant and patient, all are in agreement with the above. Prescriptions written and placed in hard chart in preparation for possible discharge tomorrow.
[2016-12-10] MEDS: NYSTATIN SUSP 500,000 U/5 ML UDC PO SCH ×4 (09:52→21:14)
[2016-12-10] MEDS: ENOXAPARIN 40 MG/0.4 ML SYR SQ SCH (09:52)
[2016-12-10] MEDS: ESCITALOPRAM OXALATE 10 MG TAB PO SCH (09:52)
[2016-12-10] MEDS: AMLODIPINE BESYLATE 5 MG TAB PO SCH (09:52)
[2016-12-10] MEDS: PANTOprazole SOD 40 MG TAB PO SCH (09:52)
[2016-12-10] MEDS: TRIAMTERENE/HCTZ 37.5/25MG CAP PO SCH (09:52)
--- NOTE | 2016-12-10 10:19 | Discharge Instructions ---
Discharge Instructions Date of Service Dec 10, 2016. Admission Reason for Admission: Diverticulitis Discharge Discharge Diagnosis / Problem: Acute complicated diverticulitis Discharge Goals Goal(s): Decrease discomfort, Improve function Activity Recommendations Activity Limitations: per Instructions/Follow-up section Lifting Limitations: no more than 10 pounds Exercise/Sports Limitations: until after follow-up appointment May Resume Sexual Activity: after two weeks Shower/Bathe: no limitations . Instructions / Follow-Up Instructions / Follow-Up Please call [phone] to schedule a follow up appointment with Dr. Ford in 1 to 2 weeks. You have surgical aylin in your incision, which will need to be removed. You may shower, just wash gently over the incision with warm, soapy water; do not scrub. Do not soak, as in a bathtub or swimming pool. Care for your colostomy as directed by the colostomy nurse; home health nurses can help you. Do not lift anything greater than 10 pounds until you are evaluated at your follow up appointment. Do not drive until you are no longer taking pain medication and are completely pain free. Do not return to work until you are evaluated at your follow up appointment. Current Hospital Diet Patient's current hospital diet: Regular Diet Discharge Diet Recommended Diet: Regular Diet Procedures Procedures Performed: Exploratory Laparotomy, Bowel resection, Ostomy creation Pending Studies Studies pending at discharge: yes List of pending studies: Colon pathology, will be discussed at follow up appointment Medical Emergencies . Who to Call and When: Medical Emergencies: If at any time you feel your situation is an emergency, please call 911 immediately. . Non-Emergent Contact Non-Emergency issues call your: Primary Care Provider, Surgeon . "Provider Documentation" section prepared by Latrice Ford. . VTE Core Measure Inpt VTE Proph given/why not?: Enoxaparin (Lovenox)SUYAPA, Miranda Amato, SCD's
[2016-12-10] MEDS: TRAMADOL HCL 50 MG TAB PO PRN ×2 (11:06→17:45)
[2016-12-10] MEDS ORDERED: TRAM-10 PO (14:36)
[2016-12-10] MEDS ORDERED: INVAV1 IV (14:49)
[2016-12-10 15:07] VITALS: BP 121/81; PULSE 98; TEMP 36.9; O2SAT 93
[2016-12-10] MEDS: ERTAPENEM IV 1 GM in SODIUM CHLOR 0.9% AD-VAN 50ML 50 ML IV SCH (20:16)
[2016-12-11 00:05] VITALS: BP 118/81; PULSE 89; TEMP 36.8; O2SAT 92
[2016-12-11] MEDS: LEVOTHYROXINE 112 MCG TAB PO SCH (05:32)
[2016-12-11 07:10] LABS: HEMATOCRIT 37.8 % (37-47); MEAN CELL VOLUME 83.6 fL (80-100); MEAN CORPUSCULAR HEMOGLOBIN 28.3 pg (25-34); MEAN CORPUSCULAR HGB CONC 33.9 g/dl (32-36); MEAN PLATELET VOLUME 8.5 fL (7.4-10.4); PLATELET COUNT 338 K/uL (130-400); RED BLOOD COUNT 4.52 M/uL (4.2-5.4); WHITE BLOOD COUNT 13.94 K/uL (4.8-10.8)
[2016-12-11 07:36] VITALS: BP 126/85; PULSE 87; TEMP 37.1; O2SAT 93
[2016-12-11 07:41] LABS: CREATININE 0.49 mg/dl (0.60-1.20)
[2016-12-11] MEDS: BOOST BREEZE NUTRITION DRINK 1 BOX PO SCH ×2 (08:30→12:30)
--- NOTE | 2016-12-11 08:37 | PROGRESS NOTE ---
DATE: 12/11/[address] Ford. Nohemi is sitting at the side of her bed, resting comfortably. Her is beside her. She is 7th postop day status post Todd procedure. Last vitals showed a temperature of 37.1, pulse 87, respirations 17, blood pressure 126/85, O2 sats 93 on room air. Colostomy is working fine. Laboratory [place], this morning her WBC is 13.94, hemoglobin 12.8, The patient is continued on antibiotics. From our point of view, the patient can be discharged. The incision looks good. She can certainly take a shower. She is instructed to follow up with Dr. Ford. Apparently, she is instructed to peripheral IV to have antibiotic, she lives in [place] and she wanted to know if somehow she can get her prescription done closer to home. We will check with her case management manager. Instructions have been given by Dr. Ford. MARII
[2016-12-11] MEDS: TRIAMTERENE/HCTZ 37.5/25MG CAP PO SCH (09:00)
[2016-12-11] MEDS: TRAMADOL HCL 50 MG TAB PO PRN ×2 (09:25→16:06)
[2016-12-11] MEDS: PANTOprazole SOD 40 MG TAB PO SCH (09:30)
[2016-12-11] MEDS: NYSTATIN SUSP 500,000 U/5 ML UDC PO SCH ×3 (09:31→16:06)
[2016-12-11] MEDS: AMLODIPINE BESYLATE 5 MG TAB PO SCH (09:31)
[2016-12-11] MEDS: ESCITALOPRAM OXALATE 10 MG TAB PO SCH (09:31)
[2016-12-11] MEDS: ENOXAPARIN 40 MG/0.4 ML SYR SQ SCH (09:32)
[2016-12-11 12:00] VITALS: BP 126/85; PULSE 87; TEMP 37.1; O2SAT 93
[2016-12-11] MEDS: ERTAPENEM IV 1 GM in SODIUM CHLOR 0.9% AD-VAN 50ML 50 ML IV SCH (14:15)
[2016-12-11 15:18] VITALS: BP 136/84; PULSE 98; TEMP 37.4; O2SAT 93
--- NOTE | 2016-12-24 17:01 | Discharge Summary ---
Discharge Summary Dates Admission Date / Time: Dec 02, 2016 at 11:55 Discharge Date: Dec 11, 2016 Dispostion / Condition Discharge Disposition: Home Condition at Discharge: Good Principal Diagnosis (1) Diverticulitis Problem List (1) Asthma (2) Hypertension (3) Thyroid disease Consultations / Procedures Consultations: Hospitalist Infectious Disease Wound/Ostomy Nurse Procedures: Exploratory laparotomy, Bowel resection, Mohamud's procedure with end colostomy Pending Studies / Follow-Up None Medication Reconciliation New Medications: Ertapenem (Invanz) 1 Gm Inj 1 DOSE IV DAILY for 2 Days Please report to Medical Treatment Unit at [facility] to receive IV medication through your IV site. Tramadol (Ultram) 50 Mg Tab 50 MG PO Q4H PRN for Pain, #30 TAB Amlodipine Besylate (Amlodipine Besylate) 5 Mg Tab 5 MG PO DAILY, #30 TAB 4 Refills Continued Medications: Budesonide/Formoterol Fumarate (Symbicort 80/4.5 Inhaler) Aero 2 PUFFS INH BID PRN for SOB/Wheezing, INHALER Calcium Carbonate-Vitamin D (Calcium 600 + D) 1 Tab Tab 1 TAB PO BID Escitalopram (Lexapro) 10 Mg Tab 10 MG PO DAILY, TAB Levothyroxine Sodium (Synthroid) 112 Mcg Tab 112 MCG PO DAILY, TAB Multiple Vitamin (Multivitamin) 1 Tab Tab 1 TAB PO DAILY, TAB Pantoprazole (Protonix) 40 Mg Tab 40 MG PO DAILY, #30 TAB Triamterene/Hctz (Dyazide 37.5MG/25MG) Cap 1 TAB PO DAILY, CAP Discontinued Medications: Amlodipine (Norvasc) 2.5 Mg Tab 2.5 MG PO DAILY, TAB Gysukhp-Rxvjogvanvpxm-Tlazlmjj (Excedrin Extra Strength) 1 Tab Tab 1 TAB PO UD PRN for Pain Admission HPI Per the Admitting provider: pt began with loose BM's yesterday...took a bentyl...starting having lower pain and urinary symptoms as well. this morning got worse. Has had at least one episode of diverticulitis in past. no fever. Admission Exam Per the Admitting provider: General Appearance: no apparent distress Head: normocephalic, atraumatic Eyes: normal inspection, EOMI ENT: hearing grossly normal Neck: supple, no JVD Respiratory/Chest: no respiratory distress, no accessory muscle use Cardiovascular: no edema, no JVD Abdomen/GI: soft, + pertinent finding (mild suprapubic tendernss. no peritoneal signs) Neurologic/Psych: alert, oriented x 3 Skin: normal color, warm/dry, no rash Hospital Course (1) Diverticulitis Patient was originally seen in consultation by Dr. Alex and was admitted for observation on 12/02/2016. She was observed for one day and the on 2016 she had diffuse pain the morning with loose bowel movements and felt something pop. Pain was uncontrolled with Dilaudid and developed nausea therefore she was taken to the operating room for exploratory laparotomy , bowel resection, and ostomy formation by Dr. Ford. POD # 1 she was having moderate pain. Ostomy pink but not functioning yet. She was started on clear liquids, IV fluids, IV antibiotics (Cipro and Flagyl), Lovenox, and Martinez catheter was continued. POD # 2 pain was improved with Tramadol on top of Dilaudid [employer]. Rest of orders were continued. POD # 3 infectious disease started her on IV ertapenem 1 gm daily for a total of 7 days given the cultures of peritoneal fluid and urine showing clostridium, alpha strep, and resistant e.coli respectively. She was encouraged to ambulate and Martinez catheter and [employer] were discontinued. She was transitioned to oral pain medication as needed. POD # 4 Ostomy started functioning but appliance leaking, wound care nurse consulted. POD # 5 Diet was advanced to regular diet with nutritional supplements. Patient was originally scheduled for PICC line insertion given need of total of 7 days for IV antibiotics however refused. She was discharged on POD # 7 with peripheral IV for 2 more days of IV antibiotics. Discharge Instructions as given to patient she was discharged with peripheral IV and had two more days of IV ertapenem. Copies To Primary Care Provider: Zander Taylor M.D.. Problem Qualifiers (1) Diverticulitis: Diverticulitis site: large intestine Diverticulitis bleeding: without bleeding Diverticulitis complication: with perforation and without abscess Qualified Codes: K57.20 - Diverticulitis of large intestine with perforation and abscess without bleeding
== END 2016-12-11 16:30 | disposition home health service (06) | DRG 330 ==
LOC: C.EDB 08:05 → C.MSN 11:55 → ENRESERV 12:11
PROVIDERS: ADMIT Surgery; ATTEND Student in an Organized Health Care Education/Training Program
PROC: 0DTN0ZZ Resection of Sigmoid Colon, Open Approach (ICD-10-PCS; principal; 2016-12-04 14:00)
PROC: 0D1N0Z4 Bypass Sigmoid Colon to Cutaneous, Open Approach (ICD-10-PCS; principal; 2016-12-04 14:00)
DX: K57.20 Diverticulitis of large intestine with perforation and abscess without bleeding (principal); N39.0 Urinary tract infection, site not specified; B96.20 Unspecified Escherichia coli [E. coli] as the cause of diseases classified elsewhere; I10 Essential (primary) hypertension; J45.909 Unspecified asthma, uncomplicated; F32.9 Major depressive disorder, single episode, unspecified; F41.1 Generalized anxiety disorder; E03.9 Hypothyroidism, unspecified; R00.0 Tachycardia, unspecified; B97.6 Parvovirus as the cause of diseases classified elsewhere; B95.4 Other streptococcus as the cause of diseases classified elsewhere; K21.9 Gastro-esophageal reflux disease without esophagitis; D64.9 Anemia, unspecified; R11.0 Nausea; E78.00 Pure hypercholesterolemia, unspecified; M81.0 Age-related osteoporosis without current pathological fracture; E87.6 Hypokalemia; Z96.641 Presence of right artificial hip joint; Z96.611 Presence of right artificial shoulder joint; I25.2 Old myocardial infarction; Z92.21 Personal history of antineoplastic chemotherapy; Z79.899 Other long term (current) drug therapy; Z87.891 Personal history of nicotine dependence; Z92.3 Personal history of irradiation; Z79.51 Long term (current) use of inhaled steroids

== ENCOUNTER → 2017-03-09 | Outpatient (CLI) | payer OTHER ==
[~2017-03-09] MED LIST changes: -ADVIN25/60 INH; -CLB/200 PO; +ESCI10TA17 PO; -FSMD/70 PO; +INVAV1 IV; +LEVO112T2 PO; -LEVO125T57 PO; +NRV5 PO; +PANT40TA PO; -PRLSR20 PO; +SYMIN/8045 INH; +TRAM-10 PO; -XRL10 PO
--- NOTE | 2017-03-09 12:43 | DIAGNOSTIC IMAGING REPORT ---
TWO VIEW CHEST CLINICAL HISTORY: Asthma exacerbation. FINDINGS: PA and lateral chest radiographs are compared to study dated 08/29/2012. The cardiomediastinal silhouette is unremarkable. There is mild atherosclerotic calcification of the thoracic aorta. There is chronic elevation of the right hemidiaphragm as well as chronic residual thickening. No airspace consolidation or large pleural effusion is identified. There is no pneumothorax. The skeletal structures are osteopenic. Degenerative change and scoliosis are seen in the thoracic spine. A right shoulder arthroplasty is observed. Cholecystectomy clips are noted in the right upper quadrant. IMPRESSION: No acute cardiopulmonary abnormality. Electronically signed by: Michael Purvis M.D. 03/09/2017 12:42 PM Dictated Date/Time: 03/09/2017 12:41 PM
== END | disposition home or self-care (01) ==
LOC: C.RADBC 11:43
PROVIDERS: ATTEND Physician Assistant
DX: J45.901 Unspecified asthma with (acute) exacerbation (principal)

== ENCOUNTER → 2017-04-20 | Outpatient (CLI) | payer OTHER ==
--- NOTE | 2017-04-20 13:33 | DIAGNOSTIC IMAGING REPORT ---
TWO VIEW CHEST CLINICAL HISTORY: Asthma exacerbation. FINDINGS: PA and lateral chest radiographs are compared to study dated 03/09/2017. The cardiomediastinal silhouette is unremarkable. There is mild atherosclerotic calcification of the thoracic aorta. Chronic interstitial thickening similar to previous. No airspace consolidation or pleural effusion is identified. There is no pneumothorax. The skeletal structures are osteopenic. Degenerative change and scoliosis are noted in the thoracic spine. Bilateral shoulder arthroplasties are in place. Cholecystectomy clips are noted. IMPRESSION: No active disease in the chest. Electronically signed by: Michael Purvis M.D. 04/20/2017 1:32 PM Dictated Date/Time: 04/20/2017 1:31 PM
== END | disposition home or self-care (01) ==
LOC: C.RADBC 13:04
PROVIDERS: ATTEND Internal Medicine
DX: J45.901 Unspecified asthma with (acute) exacerbation (principal)

== ENCOUNTER → 2017-05-23 | Outpatient (CLI) | payer OTHER ==
[2017-05-23 17:51] LABS: BASO % 0.6 %; BASO ABS # 0.06 K/uL (0-0.2); EOS % 0.9 %; EOS ABS # 0.09 K/uL (0-0.5); HEMOGLOBIN 13.5 g/dL (12.0-16.0); IG# 0.02 K/uL (0.00-0.02); LYMPH % 10.2 %; LYMPH ABS # 1.01 K/uL (1.2-3.4); MEAN CORPUSCULAR HEMOGLOBIN 28.3 pg (25-34); MEAN CORPUSCULAR HGB CONC 32.9 g/dl (32-36); MEAN PLATELET VOLUME 10.2 fL (7.4-10.4); MONO % 14.6 %; MONO ABS # 1.45 K/uL (0.11-0.59); NEUT % 73.5 %; NEUT ABS # 7.31 K/uL (1.4-6.5); PLATELET COUNT 301 K/uL (130-400); RED CELL DISTRIBUTION WIDTH CV 14.2 % (11.5-14.5); WHITE BLOOD COUNT 9.94 K/uL (4.8-10.8)
[2017-05-23 18:05] LABS: ALBUMIN 3.6 gm/dl (3.4-5.0); ALT/SGPT 20 U/L (12-78); AST/SGOT 16 U/L (15-37); BLOOD UREA NITROGEN 10 mg/dl (7-18); CALCIUM 10.2 mg/dl (8.5-10.1); CARBON DIOXIDE 28 mmol/L (21-32); CREATININE 0.62 mg/dl (0.60-1.20); GLUCOSE 85 mg/dl (70-99); SODIUM 136 mmol/L (136-145)
[2017-05-23 18:07] LABS: ALKALINE PHOSPHATASE 83 U/L (45-117); TOTAL PROTEIN 7.7 gm/dl (6.4-8.2)
== END | disposition home or self-care (01) ==
LOC: C.LABPBG 11:30
PROVIDERS: ATTEND Internal Medicine
DX: I10 Essential (primary) hypertension (principal); K57.92 Diverticulitis of intestine, part unspecified, without perforation or abscess without bleeding; R19.7 Diarrhea, unspecified; R10.84 Generalized abdominal pain

== ENCOUNTER → 2017-05-31 | Outpatient (CLI) | payer OTHER ==
[2017-05-31 17:53] LABS: BLOOD UREA NITROGEN 17 mg/dl (7-18); CALCIUM 10.4 mg/dl (8.5-10.1); CARBON DIOXIDE 28 mmol/L (21-32); CREATININE 0.83 mg/dl (0.60-1.20); GLUCOSE 119 mg/dl (70-99); POTASSIUM 3.8 mmol/L (3.5-5.1); SODIUM 138 mmol/L (136-145)
== END | disposition home or self-care (01) ==
LOC: C.LABPBG 13:50
PROVIDERS: ATTEND Internal Medicine
DX: R19.7 Diarrhea, unspecified (principal); I10 Essential (primary) hypertension

== ENCOUNTER → 2017-08-17 | Outpatient (CLI) | payer OTHER ==
[~2017-08-17] MED LIST changes: -TRAM-10 PO
[2017-08-17 13:21] LABS: CALCIUM 10.5 mg/dl (8.5-10.1)
[2017-08-17 13:22] LABS: ALBUMIN 4.2 gm/dl (3.4-5.0)
== END | disposition home or self-care (01) ==
LOC: C.LAB1850 11:45
PROVIDERS: ATTEND Internal Medicine Endocrinology, Diabetes & Metabolism
DX: M81.0 Age-related osteoporosis without current pathological fracture (principal)